=== PATIENT | female | born 1955 | race Caucasian/White ===

== ENCOUNTER 2024-11-25 19:34 | Inpatient (IN) ==
[2024-11-25 20:20] LABS: Hematocrit (blood only) 40.7 % (37.0-47.0); Hemoglobin 13.2 g/dl (12.0-16.0); Mean Corpuscular Hemoglobin 31.4 pg (25.0-34.0); Mean Corpuscular Hgb Conc 32.4 g/dL (32.0-36.0); Mean Corpuscular Volume 96.9 fL (80.0-100.0); Mean Platelet Volume 9.1 fL (9.4-12.4); Platelet Count 164 K/uL (130-400); RDW Coefficient of Variation 12.4 % (11.5-14.5); RDW Standard Deviation 44.8 fL (36.4-46.3); White Blood Count 2.55 K/ul (4.8-10.8)
[2024-11-25] MEDS: ALBUT/IPRATROP 3MG/0.5MG NEB 3 ML VIAL INH STA (20:22)
[2024-11-25 20:36] LABS: Albumin Globulin Ratio 1.1 (0.9-2); Albumin Level 3.8 gm/dl (3.4-5.0); BUN Creatinine Ratio 14.1 (10-20); Bilirubin,Total 0.2 mg/dl (0.2-1.0); Calcium 8.7 mg/dl (8.6-10.3); Creatinine Clr Calc Pharmacy 63.3 ml/min; Globulin 3.4 gm/dl (2.5-4.0); Magnesium 1.8 mg/dl (1.7-2.4); Total Protein 7.2 gm/dl (6.0-8.3)
[2024-11-25 20:42] LABS: Troponin I High Sensitivity 7.2 pg/ml (0-14)
[2024-11-25 21:07] LABS: Immature Granulocytes # (auto) 0.01 K/uL (0.01-0.20); Immature Granulocytes % (auto) 0.4 %; Lymphocytes # (auto) 1.57 K/uL (1.20-3.40); Lymphocytes % (auto) 61.6 %; Monocytes # (auto) 0.38 K/uL (0.11-0.59); Monocytes % (auto) 14.9 %; Neutrophils # (auto) 0.59 K/uL (1.40-6.50); Neutrophils % (auto) 23.1 %
[2024-11-25 21:11] LABS: Adenovirus PCR Not Detected (NotDetected); Bordetella parapertussis PCR Not Detected (NotDetected); Bordetella pertussis PCR Not Detected (NotDetected); Chlamydia pneumoniae PCR Not Detected (NotDetected); Coronavirus 229E PCR Not Detected (NotDetected); Coronavirus CoV-2 (COVID19)PCR Not Detected (NotDetected); Coronavirus HKU1 PCR Not Detected (NotDetected); Coronavirus NL63 PCR Not Detected (NotDetected); Coronavirus OC43PCR Not Detected (NotDetected); Human Metapneumovirus PCR Not Detected (NotDetected); Influenza A (H3) PCR DETECTED (NotDetected); Influenza B PCR Not Detected (NotDetected); Mycoplasma pneumoniae PCR Not Detected (NotDetected); Parainfluenza Virus 1 PCR Not Detected (NotDetected); Parainfluenza Virus 2 PCR Not Detected (NotDetected); Parainfluenza Virus 3 PCR Not Detected (NotDetected); Parainfluenza Virus 4 PCR Not Detected (NotDetected); Respiratory Syncytial VirusPCR Not Detected (NotDetected); Rhinovirus/Enterovirus PCR Not Detected (NotDetected)
--- NOTE | 2024-11-25 21:35 | XRay Report ---
Exam(s): XR CXR 1 VIEW EXAM: XR Chest, 1 View CLINICAL HISTORY: Reason for exam: Dyspnea. TECHNIQUE: Frontal view of the chest. COMPARISON: 11/09/[address] and 01/26/24 chest x-ray FINDINGS: Lungs: COPD changes seen in the lungs. Nodular densities are seen in the right upper lobe, similar to prior CT from 11/09/24. No consolidation. Pleural space: There is no pneumothorax. Heart: Unremarkable. No cardiomegaly. Mediastinum: Unremarkable. Normal mediastinal contour. Bones/joints: Unremarkable. No acute fracture. IMPRESSION: 1. COPD changes in the lungs 2. Right upper lobe nodules, also described on the patient's prior chest CT Electronically signed by: Stoney Rollins MD 11/25/24 21:34 PM
--- NOTE | 2024-11-25 22:28 | Emergency Department Note ---
Impression & Plan Influenza, Dyspnea, Acute exacerbation of chronic obstructive pulmonary disease (COPD) ED Provider Note ED Provider Note NAME: MIKE DIXON AGE:69 SEX: Female : 1955 ARRIVES VIA: Private vehicle INFORMANT: Patient ED PROVIDER(s): Kathie Dawkins DO CHIEF COMPLAINT: Shortness of breath HPI: This is a 69-year-old female brought in by family due to concern for increased shortness of breath. Patient does wear oxygen at home, 2 to 3 L/min chronically due to underlying COPD/emphysema. Patient states she is been sick with the flu since Saturday with a worsening nonproductive cough. Unknown sick contacts. She has had subjective fevers and chills. She states she has had chest tightness and pain additionally. She has noted decreased appetite and nausea, no overt vomiting. She does admit to mild diarrhea today. She states with her rhinorrhea and congestion she began having worsening cough which led to increased difficulty breathing. On arrival here on her usual oxygen she was noted to be 84%. This was titrated up to improve her oxygenation. Patient states she did present to [facility] earlier today due to her symptoms. She states she was given IV antibiotics and underwent labs and chest x-ray. She states she was told she had pneumonia. She states she was not given Tamiflu as she has been ill for too many days. She states she did not want to be admitted there because her water treatment operator, Dr. Means, is up here at [facility]. Patient states she has been using her MDI/nebs at home. PAST MEDICAL HISTORY:See Below PAST SURGICAL HISTORY:See Below FAMILY HISTORY:See Below SOCIAL HISTORY:See Below HOME MEDICATIONS:See Below ALLERGIES:See Below VITALS:See Below PHYSICAL EXAMINATION: GENERAL: alert, unwell appearing, well nourished, moderate distress, non-toxic EYE EXAM: normal conjunctiva, PERRL and EOM's grossly intact OROPHARYNX: no exudate, no erythema, lips, buccal mucosa, and tongue normal and mucous membranes are moist NECK: supple, no nuchal rigidity, no adenopathy, non-tender LUNGS: Decreased bilaterally to auscultation. Normal chest wall mechanics, scattered expiratory wheeze bilaterally, no rhonchi or rails, tachypnea and increased work of breathing noted HEART: no murmurs, S1 normal and S2 normal ABDOMEN: abdomen soft, non-tender, normo-active bowel sounds, no masses, no rebound or guarding. BACK: Back is symmetrical on inspection and there is no deformity, no midline tenderness, no CVA tenderness. SKIN: no rashes, petechiae, orbruising UPPER EXTREMITIES: upper extremities are grossly normal. FROM, nml pulses b/l. Mild clubbing and yellowish discoloration consistent with smoking history LOWER EXTREMITIES: No pitting edema. FROM, nml pulses b/l. NEURO EXAM: Normal sensorium, cranial nerves II-XII grossly intact, normal speech, no facial droop,nogross weakness of arms, no gross weakness of legs. Gross sensation intact. No ataxia. Vital Signs: reviewed and remarkable Differential Diagnosis: pneumonia, bronchitis, COPD/Asthma exacerbation, pneumothorax, pulmonary embolism, congestive heart failure, acute coronary syndrome, as well as others were considered MEDICAL DECISION MAKING: This is a 69-year-old female who presents emergency department due to concern for increased work of breathing. Patient noted to be hypoxic despite use of her home oxygen when she presented to triage and was immediately brought back to room 81. Patient able to speak and provide history although was tachypneic and had worsening conversational dyspnea. Patient given a DuoNeb here. Labs drawn and sent, IV established, EKG and chest x-ray performed at bedside interpreted me and patient monitored on telemetry. Nasal swab obtained and sent for viral illness. Patient did have some improvement following nebulizer, and was maintaining her oxygenation on 3 to 4 L via nasal cannula. Patient swab positive for influenza which I suspect is likely exacerbating her underlying COPD/emphysema. Patient given the second neb additionally. We discussed addition of steroids as a precaution due to her COPD and she was in agreement. Patient was noted to be neutropenic, although did not have any fevers. Given patient had been ill for several days already, Tamiflu not started. I do not suspect occult cardiac etiology of her symptoms. She remained hemodynamically stable throughout and did report feeling improved. Case discussed with the hospitalist team for additional evaluation and management. Consultation(s): 3941: Discussed with Dr. Saucedo, [facility] hospitalist team, for additional evaluation and management. ER Treatment Provided: See below Diagnostics Interpreted By Me: -ECG: Normal sinus at 97, normal axis, normal intervals, no acute ST/T wave changes -Cardiac Monitoring: An order was placed for continuous cardiac monitoring. The monitor shows a rate of 96 with normal sinus rhythm. -Laboratory studies: As stated above and show below. -Imaging studies: X-ray Chest: A single view study of the chest was reviewed and was negative for cardiomegaly, focal infiltrate, effusion, pulmonary edema, or wide mediastinum. Triage Nursing Note Reviewed Prior/Outside Records Reviewed -prior pulmonology office visit reviewed Past Med/Surg History Problem List (Updated 11/26/24 @ 02:39 by Background Daemon) Acute and chronic respiratory failure with hypoxia Acute exacerbation of chronic obstructive pulmonary disease (COPD) (Acute) Dyspnea (Acute) Influenza (Acute) Hypercapnic respiratory failure Pulmonary nodules/lesions, multiple Mycobacterium avium complex Bronch 10/18/2022. [facility] ID following and treating Chronic obstructive pulmonary disease Tobacco use Abnormal CT scan, chest Anxiety Current tobacco use Chronic obstructive pulmonary disease Cavitary lesion of lung Quant Gold negative 09/28/2022. Bronch 10/18/2022 with MAC and positive AFB Cx. [facility] ID following Chronic respiratory failure with hypoxia Abnormal laboratory test THADDEUS 1: 320 Rheumatoid factor: 506 Medical History (Updated 11/26/24 @ 02:39 by Background Daemon) Stomach upset Shortness of breath Radiculopathy Chest pain Chest discomfort Social History (Updated 04/28/24 @ 13:42 by Edwina Reyes LPN) Smoking Status: Current some day smoker Tobacco Type: Cigarettes Age Started Using Tobacco: 34; packs per day: 2; Cigarettes Per Day: [id number] smoking history. Currently 1 pack/day; Second Hand Exposure: Yes; Do You Dip or Chew Tobacco: No; Hx Alcohol Use: No Hx Substance Use: No Preferred Language: Malawian Communication Ability: Effective Solidworks Designer Required: No Beliefs That Will Affect Care: None marital status: / Current Living Situation: Alone Current Living Situation Comment: Son comes in and checks on patient Other Information That Helps Us Care for You: No Feels Safe at Home: Yes Safety Concerns: Feels Safe At This Time Assistive Devices: Oxygen - Continuous and Walker Allergies Allergies Allergy/AdvReac Type Severity Reaction Status Date / Time No Known Allergies Allergy Unverified 11/25/24 22:51 Home Meds Home Medications Medication Instructions Recorded Confirmed citalopram 40 mg tablet 40 mg PO QAM 10/30/19 11/25/24 rifampin 300 mg capsule 600 mg PO QPM 12/18/22 11/25/24 buspirone 10 mg tablet 10 mg PO TID PRN Anxiety 08/05/24 11/25/24 ethambutol 400 mg tablet 800 mg PO QAM 08/05/24 11/25/24 omeprazole 20 mg capsule,delayed 20 mg PO QDL 08/05/24 11/25/24 release trazodone 100 mg tablet 100 mg PO HS 08/05/24 11/25/24 acetaminophen 500 mg tablet 1,000 mg PO BID 11/25/24 11/25/24 albuterol sulfate 90 mcg/actuation 2 inh inhalation QID PRN shortness 11/25/24 11/25/24 aerosol inhaler of breath or wheezing azithromycin 250 mg tablet 250 mg PO QAM 11/25/24 11/25/24 fluticasone fur. 200 mcg-umeclid 1 inh inhalation QAM 11/25/24 11/25/24 62.5 mcg-vilant 25 mcg inhalat.powder (Trelegy Ellipta) ipratropium 0.5 mg-albuterol 3 mg 3 ml inhalation Q4 PRN Shortness 11/25/24 11/25/24 (2.5 mg base)/3 mL nebulization Of Breath soln Previous Rx's Medication Instructions Recorded Flutter Valve #1 ea 09/26/22 Oxygen Home #1 ea 11/15/22 Spacer for Inhaler #1 ea 09/25/23 ensifentrine 3 mg/2.5 mL 3 mg (2.5 mL) inhalation BID #150 08/12/24 suspension for nebulization mL (Ohtuvayre) nebulizers #1 ea 08/18/24 Results & Data (ED) Vital Signs Vital Signs - 24 hr 11/26/24 00:03 11/26/24 00:30 Pulse Rate 86 88 Pulse Rate from SpO2 Sensor 86 90 Respiratory Rate 17 14 Blood Pressure 152/84 H Blood Pressure Mean 106 Pulse Oximetry 96 98 Oxygen Delivery Method Nasal Cannula Nasal Cannula Oxygen Flow Rate 3 3 Laboratory Data 11/26/24 06:27 11/26/24 06:27 Lab Results 11/25/24 Range/Units 20:01 WBC 2.55 L (4.8-10.8) K/ul RBC 4.20 (4.20-5.40) M/uL Hgb 13.2 (12.0-16.0) g/dl Hct 40.7 (37.0-47.0) % MCV 96.9 (80.0-100.0) fL MCH 31.4 (25.0-34.0) pg MCHC 32.4 (32.0-36.0) g/dL RDW Std Deviation 44.8 (36.4-46.3) fL RDW Coeff of Betty 12.4 (11.5-14.5) % Plt Count 164 (130-400) K/uL MPV 9.1 L (9.4-12.4) fL Immature Gran % (Auto) 0.4 % Neut % (Auto) 23.1 % Lymph % (Auto) 61.6 % [place] % (Auto) 14.9 % Eos % (Auto) 0.0 % Baso % (Auto) 0.0 % Neut # (Auto) 0.59 L* (1.40-6.50) K/uL Lymph # (Auto) 1.57 (1.20-3.40) K/uL [place] # (Auto) 0.38 (0.11-0.59) K/uL Eos # (Auto) 0.00 (0.00-0.50) K/uL Baso # (Auto) 0.00 (0.00-0.20) K/uL Immature Gran # (Auto) 0.01 (0.01-0.20) K/uL Sodium 141 (136-145) mmol/L Potassium 4.0 (3.5-5.1) mmol/L Chloride 103 (98-107) mmol/L Carbon Dioxide 32 (21-32) mmol/L Anion Gap 6 (3-11) BUN 9 (6-23) mg/dl Creatinine 0.64 (0.6-1.2) mg/dl Est Cr Clr Drug Dosing 63.3 ml/min eGFR 94.42 BUN/Creatinine Ratio 14.1 (10-20) Glucose 121 H (70-99(Fasting)) mg/dl Calcium 8.7 (8.6-10.3) mg/dl Magnesium 1.8 (1.7-2.4) mg/dl Total Bilirubin 0.2 (0.2-1.0) mg/dl AST 25 (13-39) U/L ALT 14 (7-52) U/L Alkaline Phosphatase 73 (34-104) U/L Troponin I High Sens 7.2 (0-14) pg/ml Total Protein 7.2 (6.0-8.3) gm/dl Albumin 3.8 (3.4-5.0) gm/dl Globulin 3.4 (2.5-4.0) gm/dl Albumin/Globulin Ratio 1.1 (0.9-2) Adenovirus (PCR) Not Detected (NotDetected) B. pertussis DNA (PCR) Not Detected (NotDetected) B.parapertussis DNA PCR Not Detected (NotDetected) C. pneumoniae DNA (PCR) Not Detected (NotDetected) Coronavirus OC43 (PCR) Not Detected (NotDetected) Coronavirus HKU1 (PCR) Not Detected (NotDetected) Coronavirus 229E (PCR) Not Detected (NotDetected) SARS-CoV-2 (PCR) Not Detected (NotDetected) Coronavirus NL63 (PCR) Not Detected (NotDetected) Human Metapneumovir PCR Not Detected (NotDetected) Influenza A (H3) PCR DETECTED A (NotDetected) Influenza Type B (PCR) Not Detected (NotDetected) M. pneumoniae (PCR) Not Detected (NotDetected) Parainfluenza 1 (PCR) Not Detected (NotDetected) Parainfluenza 2 (PCR) Not Detected (NotDetected) Parainfluenza 3 (PCR) Not Detected (NotDetected) Parainfluenza 4 (PCR) Not Detected (NotDetected) RSV (PCR) Not Detected (NotDetected) Entero/Rhino (PCR) Not Detected (NotDetected) Administered Medications Al Hydrox/Mg Hydrox/Simethicone (Aluminum/Magnesium Susp 30 Ml Udc) 30 ml PO Q6H PRN PRN Reason: Dyspepsia Stop: 12/26/24 02:53 Last Admin: 11/26/24 11:06 Dose: 30 ml Documented By: CMV Azithromycin (Azithromycin 250 Mg Tab) 250 mg PO QAM CADEN Stop: 12/26/24 08:59 Last Admin: 11/26/24 08:45 Dose: 250 mg Documented By: CMV Buspirone HCl (Buspirone 5 Mg Tab) 10 mg PO TID PRN PRN Reason: Anxiety Stop: 12/26/24 02:53 Last Admin: 11/26/24 08:45 Dose: 10 mg Documented By: CMV Citalopram Hydrobromide (Citalopram 40 Mg Tab) [facility] [place] Stop: 12/26/24 08:59 Last Admin: 11/26/24 08:45 Dose: 40 mg Documented By: CMV Enoxaparin Sodium (Enoxaparin Inj 40 Mg/0.4 Ml Syr) 40 [facility] [place] Stop: 12/26/24 08:59 Last Admin: 11/26/24 08:44 Dose: 40 mg Documented By: CMV Ethambutol HCl (Ethambutol Hcl 400 Mg Tab) 800 [facility] [place] Stop: 12/26/24 08:59 Last Admin: 11/26/24 08:44 Dose: 800 mg Documented By: CMV Fluticasone Furoate (Fluticasone Furoate 200mcg 14 Puffs/Inhaler) 1 puffs INH DAILY [facility] Stop: 12/26/24 08:59 Last Admin: 11/26/24 08:46 Dose: 1 puffs Documented By: CMV Guaifenesin (Guaifenesin 600 Mg Tabcr) 1,200 mg PO Q12 [facility] Stop: 12/26/24 08:59 Last Admin: 11/26/24 20:40 Dose: 1,200 mg Documented By: Admin: 11/26/24 08:44 Dose: 1,200 mg Documented By: CMV Methylprednisolone 40 mg/ (Syringe) 0.64 mls @ 1.5 mls/min IV BID [facility] Stop: 12/26/24 08:59 Last Admin: 11/26/24 20:39 Dose: 1.5 mls/min Documented By: Admin: 11/26/24 08:50 Dose: 1.5 mls/min Documented By: CMV Oseltamivir Phosphate (Oseltamivir Phosphate 75 Mg Cap) 75 mg PO BID [facility]; Protocol Stop: 12/01/24 08:59 Last Admin: 11/26/24 20:40 Dose: 75 mg Documented By: Admin: 11/26/24 08:44 Dose: 75 mg Documented By: CMV Rifampin (Rifampin 300 Mg Capsule) 600 mg PO QPM CADEN Stop: 12/26/24 02:53 Last Admin: 11/26/24 20:40 Dose: 600 mg Documented By: Admin: 11/26/24 04:03 Dose: Not Given Documented By: MARCUS Sodium Chloride (Sodium Chloride 0.65% Na Soln 45 Ml ([place])) 1 sprays NA PRN PRN PRN Reason: Dryness Stop: 12/26/24 07:49 Last Admin: 11/26/24 11:06 Dose: 1 sprays Documented By: CMV Trazodone HCl (Trazodone Hcl 100 Mg Tab) 100 mg PO HS CADEN Stop: 12/26/24 00:54 Last Admin: 11/26/24 20:40 Dose: 100 mg Documented By: Admin: 11/26/24 01:36 Dose: 100 mg Documented By: DEVIN Umeclidinium/Vilanterol (Umeclidinium/Vilanterol 62.5/25mcg 7 Puffs/Inhaler) 1 puffs INH DAILY CADEN Stop: 12/26/24 08:59 Last Admin: 11/26/24 08:46 Dose: 1 puffs Documented By: CMV Discontinued Medications Albuterol (Albut/Ipratrop 3mg/0.5mg Neb 3 Ml Vial) 3 ml INH NOW STA Stop: 11/25/24 20:06 Last Admin: 11/25/24 20:22 Dose: 3 ml Documented By: Albuterol (Albut/Ipratrop 3mg/0.5mg Neb 3 Ml Vial) 3 ml NEB NOW STA; Protocol Stop: 11/25/24 22:29 Last Admin: 11/26/24 00:27 Dose: 3 ml Documented By: DEVIN Albuterol (Albuterol Hfa 8 Gm Inhaler) 1 puffs INH QIDR CADEN Stop: 12/26/24 06:59 Last Admin: 11/26/24 19:43 Dose: 1 puffs Documented By: Admin: 11/26/24 14:31 Dose: 1 puffs Documented By: Admin: 11/26/24 10:46 Dose: 1 puffs Documented By: Admin: 11/26/24 07:34 Dose: 1 puffs Documented By: DANIELE Sodium Chloride (Nss) 1,000 mls @ 125 mls/hr IV .Q8H CADEN Stop: 11/26/24 14:29 Last Infusion: 11/26/24 14:37 Dose: Infused Documented By: Admin: 11/26/24 10:32 Dose: 125 mls/hr Documented By: Infusion: 11/26/24 08:25 Dose: Infused Documented By: Admin: 11/26/24 00:25 Dose: 125 mls/hr Documented By: DEVIN Ipratropium [place] (Ipratropium [place] Hfa Inhaler) 1 puffs INH QIDR CADEN Stop: 12/26/24 06:59 Last Admin: 11/26/24 19:42 Dose: 1 puffs Documented By: Admin: 11/26/24 14:31 Dose: 1 puffs Documented By: Admin: 11/26/24 10:46 Dose: 1 puffs Documented By: Admin: 11/26/24 07:34 Dose: 1 puffs Documented By: DANIELE Methylprednisolone (Methylprednisolone 125 Mg/2 Ml Vial) 60 mg IV NOW STA Stop: 11/25/24 22:29 Last Admin: 11/26/24 00:26 Dose: 60 mg Documented By: DEVIN Imaging Data Radiologist's Impression: Chest X-Ray 11/25/24 20:05 Exam(s): XR CXR 1 VIEW EXAM: XR Chest, 1 View CLINICAL HISTORY: Reason for exam: Dyspnea. TECHNIQUE: Frontal view of the chest. COMPARISON: 11/09/[address] and 01/26/24 chest x-ray FINDINGS: Lungs: COPD changes seen in the lungs. Nodular densities are seen in the right upper lobe, similar to prior CT from 11/09/24. No consolidation. Pleural space: There is no pneumothorax. Heart: Unremarkable. No cardiomegaly. Mediastinum: Unremarkable. Normal mediastinal contour. Bones/joints: Unremarkable. No acute fracture. IMPRESSION: 1. COPD changes in the lungs 2. Right upper lobe nodules, also described on the patient's prior chest CT Electronically signed by: Stoney Rollins MD 11/25/24 21:34 PM Discharge Plan Visit Data Chief Complaint: Shortness of Breath/Dyspnea Stated Complaint: SOB ED Provider: Kathie Dawkins Discharge Problem: Influenza, Dyspnea, Acute exacerbation of chronic obstructive pulmonary disease (COPD) Patient Disposition: Admitted As Inpatient Discharge Instructions Interventions: ED Discharge Assessment Last Done: 11/26/24 02:20
[2024-11-26] MEDS: SODIUM CHLORIDE 0.9% 1,000 ML IV SCH (00:25)
[2024-11-26] MEDS: methylPREDNISolone 125 MG/2 ML VIAL IV STA (00:26)
[2024-11-26] MEDS: ALBUT/IPRATROP 3MG/0.5MG NEB 3 ML VIAL NEB STA (00:27)
--- NOTE | 2024-11-26 00:42 | History & Physical Report ---
Date of Service November 26, 2024 Assessment & Plan (1) Acute exacerbation of chronic obstructive pulmonary disease (COPD): (2) Dyspnea: (3) Influenza: (4) Mycobacterium avium complex: (5) Pulmonary nodules/lesions, multiple: (6) Current tobacco use: (7) Anxiety: (8) Acute and chronic respiratory failure with hypoxia: Plan 69 year old female with PMHx of COPD, tobacco use, MAC infection, anxiety, insomnia presenting with worsening shortness of breath: #Acute on chronic respiratory failure with hypoxia: #Influenza A: # COPD Exacerbation: SpO2 83% on home O2 at time of arrival - titrate oxygen to target SpO2>90% Respiratory Biofire +Influenza A - start Oseltamivir 75mg PO BID CXR with emphysematous changes but without consolidation, low suspicion for bacterial pneumonia at this time Continue formulary equivalent of home inhaler regimen Albuterol-Ipratropium 1 puff Q4H PRN - nebs deferred to reduce aerosolization of potentially infectious material - assess patient response, could switch to nebs if needed Mucinex, incentive spirometry, flutter valve Continue home Azithromycin for pulmonary anti-inflammatory effect IV Solumedrol 40mg BID Encourage smoking cessation Droplet precautions, neutropenic precautions AM labs: CBC, BMP #MAC Infection: - [facility] ID records reviewed - Initial sputum culture positive September 2022 - Treatment started Nov 2022, patient has since continued on 3 drug regimen of Azithromycin, Ethambutol, and Rifampin, previously completed Amikaycin course. - Negative sputum cx Jul 2023 - no additional sputum samples obtained due to patient difficulty producing sample - per ID note, recommended pulm follow up for consideration of bronch + BAL. - Patient follows with [facility] pulmonology - consider pulm consult, though this can likely be addressed in the outpatient setting - Continue Azithromycin, Ethambutol QAM + Rifampin QHS Chronic Conditions: Anxiety: Continue Celexa Insomnia: Continue Trazodone Dispo: Admit to med-tele Diet: Regular VTE ppx: Lovenox Full Code History of Present Illness Primary Care Provider: Chris River Capp, DO 69 year old female with PMHx of COPD, tobacco use, MAC infection, anxiety, i nsomnia presenting with worsening shortness of breath. Sx started Saturday with rhinorrhea, fatigue, myalgias - later developed subjective fevers/chills, shortness of breath. On 2-3L O2 at baseline, was requiring 5-6L over past couple day. Patient seen earlier today at an outside facility, tested positive for influenza - recommended for admission but patient wanted to be treated at [facility] as her pulmonology team is here. Patient follows with [place] pulmonology and [facility] ID for management of MAC infection, diagnosed September 2022. At present, patient notes partial improvement in SOB with neb tx. Denies current fever/chills. ED Course: S/P IV Solumedrol 60mg S/P Duonebs x2 Allergies Allergy/AdvReac Type Severity Reaction Status Date / Time No Known Allergies Allergy Unverified 11/25/24 22:51 Home Medications Medication Instructions Recorded Confirmed Type citalopram 40 mg tablet 40 mg PO QAM 10/30/19 11/25/24 History Flutter Valve #1 ea 09/26/22 11/25/24 Rx Oxygen Home #1 ea 11/15/22 11/25/24 Rx rifampin 300 mg capsule 600 mg PO QPM 12/18/22 11/25/24 History Spacer for Inhaler #1 ea 09/25/23 11/25/24 Rx buspirone 10 mg tablet 10 mg PO TID PRN Anxiety 08/05/24 11/25/24 History ethambutol 400 mg tablet 800 mg PO QAM 08/05/24 11/25/24 History omeprazole 20 mg capsule,delayed 20 mg PO QDL 08/05/24 11/25/24 History release trazodone 100 mg tablet 100 mg PO HS 08/05/24 11/25/24 History ensifentrine 3 mg/2.5 mL 3 mg (2.5 mL) inhalation BID #150 08/12/24 11/25/24 Rx suspension for nebulization mL (Ohtuvayre) nebulizers #1 ea 08/18/24 11/25/24 Rx acetaminophen 500 mg tablet 1,000 mg PO BID 11/25/24 11/25/24 History albuterol sulfate 90 mcg/actuation 2 inh inhalation QID PRN shortness 11/25/24 11/25/24 History aerosol inhaler of breath or wheezing azithromycin 250 mg tablet 250 mg PO QAM 11/25/24 11/25/24 History fluticasone fur. 200 mcg-umeclid 1 inh inhalation QAM 11/25/24 11/25/24 History 62.5 mcg-vilant 25 mcg inhalat.powder (Trelegy Ellipta) ipratropium 0.5 mg-albuterol 3 mg 3 ml inhalation Q4 PRN Shortness 11/25/24 11/25/24 History (2.5 mg base)/3 mL nebulization Of Breath soln Past Med/Surg History Problem List (Updated 11/26/24 @ 02:39 by Background Daemon) Acute and chronic respiratory failure with hypoxia Acute exacerbation of chronic obstructive pulmonary disease (COPD) (Acute) Dyspnea (Acute) Influenza (Acute) Hypercapnic respiratory failure Pulmonary nodules/lesions, multiple Mycobacterium avium complex Bronch 10/18/2022. [facility] following and treating Chronic obstructive pulmonary disease Tobacco use Abnormal CT scan, chest Anxiety Current tobacco use Chronic obstructive pulmonary disease Cavitary lesion of lung Quant Gold negative 09/28/2022. Bronch 10/18/2022 with MAC and positive AFB Cx. [facility] ID following Chronic respiratory failure with hypoxia Abnormal laboratory test THADDEUS 1: 320 Rheumatoid factor: 506 Medical History (Updated 11/26/24 @ 02:39 by Background Daemon) Stomach upset Shortness of breath Radiculopathy Chest pain Chest discomfort Social History (Updated 04/28/24 @ 13:42 by Edwina Reyes LPN) Smoking Status: Current some day smoker Tobacco Type: Cigarettes Age Started Using Tobacco: 34; packs per day: 2; Cigarettes Per Day: [id number] smoking history. Currently 1 pack/day; Second Hand Exposure: Yes; Do You Dip or Chew Tobacco: No; Hx Alcohol Use: No Hx Substance Use: No Preferred Language: Rwandan Communication Ability: Effective [employer] Required: No Beliefs That Will Affect Care: None marital status: / Current Living Situation: Alone Current Living Situation Comment: Son comes in and checks on patient Other Information That Helps Us Care for You: No Feels Safe at Home: Yes Safety Concerns: Feels Safe At This Time Assistive Devices: Oxygen - Continuous and Walker Review of Systems Review of Systems: as per HPI Physical Exam Physical Exam: General: Alert and oriented. No acute distress Cardiac: Regular rate and rhythm, no murmurs appreciated Respiratory: Lungs clear to auscultation bilaterally, No increased work of breathing Abdominal: Soft, non-tender, non-distended. Bowel sounds present. Gravid uterus. Extremities: No lower extremity edema, calves non-tender bilaterally Results & Data Results & Data Vital Signs (Past 12 Hours) Vital Signs Temp Pulse Pulse Resp BP BP Pulse Ox 11/26/24 00:03 86 17 152/84 H 96 11/25/24 22:33 100 H 23 95 11/25/24 21:30 100 H 20 93 11/25/24 21:00 98 H 18 129/75 96 11/25/24 21:00 101 H 20 129/75 96 11/25/24 20:12 94 H 11/25/24 20:11 133/81 11/25/24 20:07 94 H 20 98 11/25/24 20:01 99 11/25/24 20:01 11/25/24 19:43 36.7 C 110 H 19 142/76 H 83 L O2 Del Method O2 Flow Rate 11/26/24 00:03 Nasal Cannula 3 11/25/24 22:33 Nasal Cannula 3 11/25/24 21:30 Room Air 11/25/24 21:00 Room Air 11/25/24 21:00 Nasal Cannula 3 11/25/24 20:12 11/25/24 20:11 11/25/24 20:07 Nasal Cannula 3 11/25/24 20:01 Nasal Cannula 4 11/25/24 20:01 Nasal Cannula 4 11/25/24 19:43 Nasal Cannula 3 Supervising Physician Co-Signing Physician Notes Attending addendum: I have physically seen this patient, have supervised the medical residents activities, and agree with the H&P unless as otherwise noted. Assessment and Plan: The patient is a 69-year-old female with past medical history including COPD, tobacco use disorder, chronic MAC infection, anxiety, insomnia who presents with worsening shortness of breath over the past several days. Acute on chronic respiratory failure with hypoxia/influenza A/COPD exacerbation/MAC infection Pulse ox 83% at home Respiratory BioFire test positive for influenza A, will start Tamiflu 75 mg p.o. twice daily Chest x-ray shows COPD/emphysematous changes without consolidation Duonebs every 4 hours while awake and every 2 hours when necessary. Every 4 hours as needed Mucinex 60 mg p.o. every 12 hours Incentive spirometry and flutter valve From the ED patient received methylprednisolone 60 mg IV, DuoNebs x 2, and normal saline 125 mL/h Continue methylprednisolone 40 mg IV every 12 hours Droplet precautions Neutropenic precautions Tobacco cessation counseling Chronic MAC infection- Review from [facility] infectious disease, with initial sputum positive on September 2022 Treatment began in November 2022, with 3 drug regimen of azithromycin, ethambutol and rifampin, having previously completed an amikacin course Continue treatment as above Patient does follow with [facility] pulmonology Continue current regimen, and consult pulmonology/infectious disease as needed Remaining orders and notations as noted Resident Activity Tracking Resident Involvement: Resident Care Provided Care Provided: Adult Hospital Medicine
[2024-11-26] MEDS: traZODone HCL 100 MG TAB PO SCH (01:36)
[2024-11-26] MEDS ORDERED: MELATONIN 3 MG TAB PO PRN (02:54)
[2024-11-26] MEDS ORDERED: IPRATROPIUM BROMIDE/ALBUTEROL respimat INH INH PRN (02:54)
[2024-11-26] MEDS ORDERED: POLYETHYLENE (MIRALAX) 17 GM PACK PO PRN (02:54)
[2024-11-26] MEDS: rifAMPin 300 MG CAPSULE PO SCH (04:03)
[2024-11-26 06:57] LABS: Hematocrit (blood only) 35.9 % (37.0-47.0); Mean Corpuscular Hemoglobin 32.4 pg (25.0-34.0); Mean Corpuscular Hgb Conc 33.4 g/dL (32.0-36.0); Mean Platelet Volume 9.1 fL (9.4-12.4); Platelet Count 138 K/uL (130-400); RDW Coefficient of Variation 12.4 % (11.5-14.5); RDW Standard Deviation 44.4 fL (36.4-46.3); White Blood Count 2.09 K/ul (4.8-10.8)
[2024-11-26 07:25] LABS: BUN Creatinine Ratio 17.3 (10-20); Creatinine Clr Calc Pharmacy 77.1 ml/min; Potassium 3.9 mmol/L (3.5-5.1)
--- NOTE | 2024-11-26 07:27 | Hospitalist Progress Note ---
Date of Service November 26, 2024 Assessment & Plan (1) Acute exacerbation of chronic obstructive pulmonary disease (COPD): (2) Influenza: (3) Acute and chronic respiratory failure with hypoxia: (4) Mycobacterium avium complex: (5) Pulmonary nodules/lesions, multiple: (6) Anxiety: Plan 69 year old female with PMHx of COPD with home O2 2-3L/min, 34pack-year tobacco smoking history, MAC infection, anxiety, and insomnia presenting with worsening shortness of breath and desaturations to the low 80s requiring 6L/min NC likely provoked by Flu A, SOB improving and O2 currently improved to home rate of 3L/min. # COPD Exacerbation - Acute on chronic respiratory failure with hypoxia likely provoked by Influenza A - O2 requirement improving, currently on 3L/min saturating mid-90s, uses 2- 3L/min at home Maintain O2>90% Once within a day or 2 of discharge, obtain overnight pulseox at 2L/min, can increase to 3L/min consistently <90% Obtain ABG in AM after overnight pulseox BMP AM Continue home COPD meds Albuterol-Ipratropium 1 puff Q4H PRN - can switch to nebs if needed IV Solumedrol 40mg BID Mucinex, incentive spirometry, flutter valve Emphasize continued smoking cessation Consider palliative consult if has not spoken to palliative at [facility], otherwise discuss ongoing management of symptoms and quality of life while inpatient Followup outpatient to be evaluated for AVAPS utility #Influenza A: Continue Tamiflu Continue home Azithromycin for pulmonary anti-inflammatory effect as a bonus from daily MAC regimen Continue above regimen for COPD exacerbation Droplet precautions CBC AM #MAC Infection: - [facility] [place] records reviewed - Initial sputum culture positive September 2022 - Treatment started Nov 2022, patient has since continued on 3 drug regimen of Azithromycin, Ethambutol, and Rifampin, previously completed Amikaycin course. - Negative sputum cx Jul 2023 - no additional sputum samples obtained due to patient difficulty producing sample - per ID note, recommended pulm follow up for consideration of bronch + BAL. - Patient follows with [facility] pulmonology - can likely follow up as an outpatient Continue Azithromycin qAM, Ethambutol qAM, Rifampin qHS Neutropenic precautions Chronic Conditions: Anxiety- continue Celexa Insomnia- continue Trazodone Dispo: medical Diet: Regular VTE ppx: Lovenox Full Code Admission and Anticipated Discharge Date Admission Date: November 26, 2024 Supervising Physician Co-Signing Physician Notes I personally examined the patient and verified all martin points of history and exam, discussed case, and agree with decision making with Dr Everett Feeling better at rest still significantly short of breath with exertion. Vitals noted, in general she is awake and alert pleasant no distress. HEENT normocephalic atraumatic mucous membranes moist. Breathing unlabored no accessory muscle use good effort. Skin without rashes pallor or icterus. Thin appearing. Flu, COPD exacerbation, acute on chronic respiratory failure with hypoxia all superimposed on MAC as well as baseline COPDcontinue steroids, continue supportive care. Showing slow improvement. Anticipate overnight pulse ox and a.m. blood gas once she is within 24-48 hours of dischargewe discussed it seems highly unlikely that she will be leaving in the next 24therefore holding off for now. Underweight with BMI of 17.5likely relates to the severity of her chronic lung disease. DVT proph - lovenox Subjective Milagro was seen and evaluated at bedside this AM, appearing in mild distress, NC set to 3L/min in place. Confirms history of COPD, 34pack-year smoking history not currently smoking, MAC since 2022, stable pulmonary nodules being followed, anxiety. Denies any history of positive HIV screen, denies any known reason for immunocompromise, but follows with Dr. Martinez with infectious disease in [place]. States she tested positive for Flu A on Saturday11/22/24 but had symptoms of SOB and nonproductive cough since maybe last 11/19/24. Also notes decrease in appetite, and endorses she at baseline doesn't have a big appetite. This morning she feels better than she did last night, able to breathe without issue on 3L/min when lying in bed. She notes, however, that she would still have much shortness of breath and fatigue if she got up to walk to the bathroom, so she is currently with leonardo and on bedpan. Amenable to PT/OT to regain strength, but feels she will need at least a few days here before she can go home. Review of Systems Review of Systems: denies fever, body aches, chills, sweats, hemoptysis, nausea/vomiting. Physical Exam Physical Exam: General: A&Ox3, appearing frail and in mild distress, nontoxic in appearance CV: RRR, +s1/s2, no m/r/g Respiratory: decreased air movement b/l, soft R lower lung wheeze, otherwise clear to auscultation b/l, no retractions seen GI/Abdominal: +BS, abdomen soft, non-tender, non-distended MSK: 4/5 strength in all extremities Neuro: no facial droop, speech intact, no sensory deficits Extremities: No lower extremity edema, calves non-tender b/l, wiggles fingers and toes on command Skin: warm, dry, intact Results & Data Results & Data Vital Signs (Past 12 Hours) Vital Signs Temp Pulse Pulse Pulse Resp BP BP 11/26/24 07:21 36.6 C 86 16 130/74 11/26/24 02:58 11/26/24 02:54 36.6 C 105 H 20 149/80 H 11/26/24 02:00 90 21 11/26/24 00:30 88 14 11/26/24 00:03 86 17 152/84 H 11/25/24 22:33 100 H 23 11/25/24 21:30 100 H 20 11/25/24 21:00 98 H 18 129/75 11/25/24 21:00 101 H 20 129/75 11/25/24 20:12 94 H 11/25/24 20:11 133/81 11/25/24 20:07 94 H 20 11/25/24 20:01 11/25/24 20:01 11/25/24 19:43 36.7 C 110 H 19 142/76 H Pulse Ox O2 Del Method O2 Flow Rate 11/26/24 07:21 97 Nasal Cannula 2.0 11/26/24 02:58 Nasal Cannula 3 11/26/24 02:54 92 Nasal Cannula 2 11/26/24 02:00 96 Nasal Cannula 3 11/26/24 00:30 98 Nasal Cannula 3 11/26/24 00:03 96 Nasal Cannula 3 11/25/24 22:33 95 Nasal Cannula 3 11/25/24 21:30 93 Room Air 11/25/24 21:00 96 Room Air 11/25/24 21:00 96 Nasal Cannula 3 11/25/24 20:12 11/25/24 20:11 11/25/24 20:07 98 Nasal Cannula 3 11/25/24 20:01 99 Nasal Cannula 4 11/25/24 20:01 Nasal Cannula 4 11/25/24 19:43 83 L Nasal Cannula 3 Resident Activity Tracking Resident Involvement: Resident Care Provided Care Provided: Adult Hospital Medicine
[2024-11-26] MEDS: ALBUTEROL HFA 8 GM INHALER INH SCH (07:34)
[2024-11-26] MEDS: IPRATROPIUM BROMIDE HFA INHALER INH SCH (07:34)
[2024-11-26 07:58] LABS: ALC (manual) 1.42 K/uL (1.2-3.4); ANC (manual) 0.59 K/uL (1.4-6.5); Lymphocytes # (manual) 0.98 K/uL (1.2-3.4); Lymphocytes % (manual) 47 %; Monocytes # (manual) 0.08 K/uL (0.11-0.59); Monocytes % (manual) 4 %; Neutrophils # (manual) 0.59 K/uL (1.40-6.50); Neutrophils % (manual) 28 %; Reactive Lymphocytes # (manual) 0.44 K/uL; Reactive Lymphocytes % (manual) 21 %
[2024-11-26] MEDS ORDERED: Nursing to Pharmacy Communication SCH (08:00)
[2024-11-26] MEDS: OSELTAMIVIR PHOSPHATE 75 MG CAP PO SCH (08:44)
[2024-11-26] MEDS: guaiFENesin 600 MG TABCR PO SCH (08:44)
[2024-11-26] MEDS: ETHAMBUTOL HCL 400 MG TAB PO SCH (08:44)
[2024-11-26] MEDS: ENOXAPARIN INJ 40 MG/0.4 ML SYR SQ SCH (08:44)
[2024-11-26] MEDS: busPIRone 5 MG TAB PO PRN (08:45)
[2024-11-26] MEDS: CITALOPRAM 40 MG TAB PO SCH (08:45)
[2024-11-26] MEDS: AZITHROMYCIN 250 MG TAB PO SCH (08:45)
[2024-11-26] MEDS: FLUTICASONE FUROATE 200MCG 14 PUFFS/INHALER INH SCH (08:46)
[2024-11-26] MEDS: UMECLIDINIUM/VILANTEROL 62.5/25MCG 7 PUFFS/INHALER INH SCH (08:46)
[2024-11-26] MEDS: methylPREDNISolone 40 MG in SYRINGE 0 ML IV SCH (08:50)
[2024-11-26] MEDS ORDERED: NON-FORMULARY MEDICATION (Fluticasone-Umeclidin-Vilanter [Trelegy Ellipta] 200-62.5-25 mcg INH SCH (09:00)
[2024-11-26] MEDS: ALUMINUM/MAGNESIUM SUSP 30 ML UDC PO PRN (11:06)
[2024-11-26] MEDS: SODIUM CHLORIDE 0.65% NA SOLN 45 ML (OCEAN) PRN (11:06)
--- NOTE | 2024-11-26 13:24 | Billing Data ---
Date of Service November 26, 2024 Coding Level of Care Code 87868 SUB INP/OBS CARE 3MIN
--- NOTE | 2024-11-26 15:07 | Electrocardiogram Report ---
Test Reason : Blood Pressure : */* mmHG Vent. Rate : 97 BPM Atrial Rate : 97 BPM P-R Int : 116 ms QRS Dur : 86 ms QT Int : 338 ms P-R-T Axes : 78 39 76 degrees QTcB Int : 429 ms Normal sinus rhythm Normal ECG When compared with ECG of 18-Oct-2022 07:43, No significant change was found Confirmed by Shahid Adair ([id number]) on 11/26/2024 3:07:41 PM Referred By: REFERRED SELF Confirmed By: Shahid Adair
--- NOTE | 2024-11-26 20:30 | Billing Data ---
Date of Service November 26, 2024 Coding Level of Care Code 91892 INT INP/OBS CARE
[2024-11-26] MEDS: ALBUT/IPRATROP 3MG/0.5MG NEB 3 ML VIAL NEB SCH (23:14)
[2024-11-27 06:57] LABS: Hematocrit (blood only) 37.8 % (37.0-47.0); Hemoglobin 12.1 g/dl (12.0-16.0); Mean Corpuscular Hemoglobin 30.9 pg (25.0-34.0); Mean Corpuscular Volume 96.7 fL (80.0-100.0); Mean Platelet Volume 9.3 fL (9.4-12.4); Platelet Count 148 K/uL (130-400); RDW Coefficient of Variation 12.5 % (11.5-14.5); RDW Standard Deviation 44.3 fL (36.4-46.3); Red Blood Count 3.91 M/uL (4.20-5.40)
[2024-11-27] MEDS ORDERED: ALBUT/IPRATROP 3MG/0.5MG NEB 3 ML VIAL NEB SCH (07:00)
--- NOTE | 2024-11-27 07:02 | Hospitalist Progress Note ---
Date of Service November 27, 2024 Assessment & Plan (1) Acute exacerbation of chronic obstructive pulmonary disease (COPD): (2) Influenza: (3) Acute and chronic respiratory failure with hypoxia: (4) Mycobacterium avium complex: (5) Pulmonary nodules/lesions, multiple: (6) Anxiety: Plan 69 year old female with PMHx of COPD with home O2 2-3L/min, 34pack-year tobacco smoking history, MAC infection, anxiety, and insomnia presenting with worsening shortness of breath and desaturations to the low 80s requiring 6L/min NC likely provoked by Flu A, SOB improving and O2 currently improved to home rate of 3L/min. # COPD Exacerbation - Acute on chronic respiratory failure with hypoxia likely provoked by Influenza A - O2 requirement improving, currently on 3L/min saturating mid-90s, uses 2- 3L/min at home Maintain O2>90% Once within a day or 2 of discharge, obtain overnight pulseox at 2L/min, can increase to 3L/min consistently <90% Obtain ABG in AM after overnight pulseox BMP AM Continue home COPD meds Albuterol-Ipratropium 1 puff Q4H PRN - can switch to nebs if needed IV Solumedrol 40mg BID Mucinex, incentive spirometry, flutter valve Emphasize continued smoking cessation Consider palliative consult if has not spoken to palliative at [facility], otherwise discuss ongoing management of symptoms and quality of life while inpatient Followup outpatient to be evaluated for AVAPS utility #Influenza A: Continue Tamiflu Continue home Azithromycin for pulmonary anti-inflammatory effect as a bonus from daily MAC regimen Continue above regimen for COPD exacerbation Droplet precautions CBC AM #MAC Infection: - [facility] [place] ID records reviewed - Initial sputum culture positive September 2022 - Treatment started Nov 2022, patient has since continued on 3 drug regimen of Azithromycin, Ethambutol, and Rifampin, previously completed Amikaycin course. - Negative sputum cx Jul 2023 - no additional sputum samples obtained due to patient difficulty producing sample - per ID note, recommended pulm follow up for consideration of bronch + BAL. - Patient follows with [facility] pulmonology - can likely follow up as an outpatient Continue Azithromycin qAM, Ethambutol qAM, Rifampin qHS Neutropenic precautions Spoke with [facility] ID, Dr. Swati Issa 11/27/24 to give update, no changes in MAC abx for now, wants to have telehealth appt soon since it's been 7mos Chronic Conditions: Anxiety- continue Celexa Insomnia- continue Trazodone Dispo: medical Diet: Regular VTE ppx: Lovenox Full Code Admission and Anticipated Discharge Date Admission Date: November 26, 2024 Supervising Physician Co-Signing Physician Notes I personally examined the patient and verified all martin points of history and exam, discussed case, and agree with decision making with Dr Everett slowly feeling better. Still short of breath with exertion but less than yesterday. Vitals noted, in general she is awake and alert pleasant no distress. HEENT normocephalic atraumatic mucous membranes moist. Breathing unlabored no accessory muscle use good effort. faint scattered wheezing and rhonchi diffusely modest air entry. Skin without rashes pallor or icterus. Thin appearing. Flu, COPD exacerbation, acute on chronic respiratory failure with hypoxia all superimposed on MAC as well as baseline COPDcontinue steroids, continue supportive care. Adding hypertonic saline nebulizers Showing slow improvement. Anticipate overnight pulse ox and a.m. blood gas once she is within 24-48 hours of dischargewe discussed it seems highly unlikely that she will be leaving in the next 24therefore holding off for now. Underweight with BMI of 17.5likely relates to the severity of her chronic lung disease. DVT proph - lovenox Subjective Milagro was seen and evaluated at bedside this AM, appearing in no acute distress, NC set to 3L/min in place. States she is having a little better of an appetite today, though at baseline doesn't have a big appetite. This morning she continues to feel a bit better than she did last night, able to breathe without issue on 3L/min when lying in bed, but was slightly short of breath as she has just gotten back into bed from bedside commode. Continuing to use flutter valve and breathing treatments. Notes a bit of nausea yesterday but took Zofran which helped a lot, denies any vomiting. Denies any other concerning symptoms at this time. States that she typically has Telehealth appointments with her ID doctor, Dr. Swati Issa, who is based in [place]. Notes she doesn't have a followup to her knowledge, but open to one since she's in the hospital again. Review of Systems Review of Systems: denies fever, body aches, chills, sweats, hemoptysis, nausea/vomiting. Physical Exam Physical Exam: General: A&Ox3, appearing frail and in mild distress, nontoxic in appearance CV: RRR, +s1/s2, no m/r/g Respiratory: decreased air movement b/l, soft scattered wheezes, otherwise clear to auscultation b/l, no retractions seen GI/Abdominal: +BS, abdomen soft, non-tender, non-distended MSK: 5/5 strength in all extremities Neuro: no facial droop, speech intact, no sensory deficits Extremities: No lower extremity edema, calves non-tender b/l, wiggles fingers and toes on command Skin: warm, dry, intact Results & Data Results & Data Vital Signs (Past 12 Hours) Vital Signs Temp Pulse Resp BP Pulse Ox O2 Del Method O2 Flow Rate 11/27/24 02:25 93 Nasal Cannula 3 11/26/24 22:35 Nasal Cannula 3 11/26/24 21:56 37.0 C 104 H 20 152/71 H 89 L Nasal Cannula 3 11/26/24 19:43 82 22 94 Nasal Cannula 3 11/26/24 19:09 36.8 C 78 18 148/80 H 96 Nasal Cannula 3 Resident Activity Tracking Resident Involvement: Resident Care Provided Care Provided: Adult Hospital Medicine
[2024-11-27 07:14] LABS: Calcium 8.7 mg/dl (8.6-10.3); Creatinine Clr Calc Pharmacy 67.9 ml/min; Potassium 4.2 mmol/L (3.5-5.1)
[2024-11-27] MEDS: ONDANSETRON INJ 2 MG/ML 2 ML VIAL IV PRN (07:32)
--- NOTE | 2024-11-27 14:13 | Billing Data ---
Date of Service November 27, 2024 Coding Level of Care Code 09234 SUB INP/OBS CARE
[2024-11-27] MEDS: SODIUM CHLOR 7% 4 ML NEB NEB SCH (20:08)
[2024-11-28 06:38] LABS: Hematocrit (blood only) 35.2 % (37.0-47.0); Hemoglobin 11.6 g/dl (12.0-16.0); Mean Corpuscular Hemoglobin 31.4 pg (25.0-34.0); Mean Corpuscular Volume 95.4 fL (80.0-100.0); Mean Platelet Volume 9.2 fL (9.4-12.4); Platelet Count 187 K/uL (130-400); RDW Coefficient of Variation 12.2 % (11.5-14.5); RDW Standard Deviation 42.5 fL (36.4-46.3); Red Blood Count 3.69 M/uL (4.20-5.40); White Blood Count 3.33 K/ul (4.8-10.8)
--- NOTE | 2024-11-28 06:51 | Hospitalist Progress Note ---
Date of Service November 28, 2024 Assessment & Plan (1) Acute exacerbation of chronic obstructive pulmonary disease (COPD): (2) Influenza: (3) Acute and chronic respiratory failure with hypoxia: (4) Mycobacterium avium complex: (5) Pulmonary nodules/lesions, multiple: (6) Anxiety: Plan 69 year old female with PMHx of COPD with home O2 2-3L/min, 34pack-year tobacco smoking history, MAC infection, anxiety, and insomnia presenting with worsening shortness of breath and desaturations to the low 80s requiring 6L/min NC likely provoked by Flu A, SOB improving and O2 currently improved to home rate of 3L/min. # COPD Exacerbation - Acute on chronic respiratory failure with hypoxia likely provoked by Influenza A - O2 requirement improving, currently on 3L/min saturating mid to high 90s. She uses 2-3L/min at home. Consider reducing to 2L today with trial of overnight continuous pulse ox tonight Maintain O2>90% Once within a day or 2 of discharge, obtain overnight pulse ox at 2L/min, can increase to 3L/min consistently <90% Obtain ABG in AM after overnight pulseox BMP AM Continue home COPD meds Albuterol-Ipratropium 1 puff Q4H PRN - can switch to nebs if needed IV Solumedrol 40mg BID Mucinex, incentive spirometry, flutter valve Emphasize continued smoking cessation Consider palliative consult if has not spoken to palliative at [facility], otherwise discuss ongoing management of symptoms and quality of life while inpatient Followup outpatient to be evaluated for AVAPS utility #Influenza A: Continue Tamiflu Continue home Azithromycin for pulmonary anti-inflammatory effect as a bonus from daily MAC regimen Continue above regimen for COPD exacerbation Droplet precautions CBC AM #MAC Infection: - [facility] ID records reviewed - Initial sputum culture positive September 2022 - Treatment started Nov 2022, patient has since continued on 3 drug regimen of Azithromycin, Ethambutol, and Rifampin, previously completed Amikaycin course. - Negative sputum cx Jul 2023 - no additional sputum samples obtained due to patient difficulty producing sample - per ID note, recommended pulm follow up for consideration of bronch + BAL. - Patient follows with [facility] pulmonology - can likely follow up as an outpatient Continue Azithromycin qAM, Ethambutol qAM, Rifampin qHS Neutropenic precautions Spoke with [facility] ID, Dr. Swati Issa 11/27/24 to give update, no changes in MAC abx for now, wants to have telehealth appt soon since it's been 7mos Chronic Conditions: Anxiety- continue Celexa Insomnia- continue Trazodone Dispo: medical Diet: Regular VTE ppx: Lovenox Full Code Admission and Anticipated Discharge Date Admission Date: November 26, 2024 Supervising Physician Co-Signing Physician Notes I personally examined the patient and verified all martin points of history and exam, discussed case, and agree with decision making with Dr Streeter continues to slowly feel better. less KAYE but still requiring assistance when she gets up. Vitals noted, in general she is awake and alert pleasant no distress. HEENT normocephalic atraumatic mucous membranes moist. Breathing unlabored no accessory muscle use good effort. Skin without rashes pallor or icterus. Thin appearing. Flu, COPD exacerbation, acute on chronic respiratory failure with hypoxia all superimposed on MAC as well as baseline COPDcontinue steroids, continue supportive care. continues to show slow improvement - continue current care. Anticipate overnight pulse ox and a.m. blood gas once she is within 24-48 hours of dischargewe discussed it seems highly unlikely that she will be leaving in the next 24therefore holding off for now. Underweight with BMI of 17.5likely relates to the severity of her chronic lung disease. DVT proph - lovenox Subjective Pt is a 69 yo female who presents for AHRF and SOB in setting of flu A with a history of MAC. No acute events over night. This morning, she continues to report SOB and decreased appetite. She states she had difficulty sleeping last night due to cough and feeling SOB. She remains on 3L oxygen via NC this morning. Pt denies chest pain, vomiting, diarrhea, abdominal pain, new joint pains She endorses chills, pain at lower right ribs when coughing, generalized fatigue/weakness, and nausea Review of Systems Review of Systems: As per HPI Physical Exam Physical Exam: General: A&Ox3, appearing frail and in mild distress, nontoxic in appearance CV: RRR, +s1/s2, no m/r/g Respiratory: decreased air movement b/l, soft scattered expiratory wheezes, otherwise clear to auscultation b/l, no retractions seen GI/Abdominal: +BS, abdomen soft, non-tender, non-distended MSK: Able to move all extremities upon command Neuro: no facial droop, speech intact, no sensory deficits Extremities: No lower extremity edema, 2+ radial and pedal pulses Skin: warm, dry, intact, no rashes noted Results & Data Results & Data Vital Signs (Past 12 Hours) Vital Signs Temp Pulse Resp BP Pulse Ox O2 Del Method O2 Flow Rate 11/27/24 21:12 36.5 C 92 H 15 139/61 92 Nasal Cannula 3 11/27/24 20:08 82 18 99 Nasal Cannula 3 11/27/24 19:40 Nasal Cannula 2 Laboratory Results 11/28/24 Range/Units 06:15 WBC 3.33 L (4.8-10.8) K/ul RBC 3.69 L (4.20-5.40) M/uL Hgb 11.6 L (12.0-16.0) g/dl Hct 35.2 L (37.0-47.0) % MCV 95.4 (80.0-100.0) fL MCH 31.4 (25.0-34.0) pg MCHC 33.0 (32.0-36.0) g/dL RDW Std Deviation 42.5 (36.4-46.3) fL RDW Coeff of Betty 12.2 (11.5-14.5) % Plt Count 187 (130-400) K/uL MPV 9.2 L (9.4-12.4) fL Sodium 139 (136-145) mmol/L Potassium 4.0 (3.5-5.1) mmol/L Chloride 101 (98-107) mmol/L Carbon Dioxide 34 H (21-32) mmol/L Anion Gap 4 (3-11) BUN 14 (6-23) mg/dl Creatinine 0.54 L (0.6-1.2) mg/dl Est Cr Clr Drug Dosing 74.2 ml/min eGFR 98.37 BUN/Creatinine Ratio 25.9 H (10-20) Glucose 90 (70-99(Fasting)) mg/dl Calcium 8.5 L (8.6-10.3) mg/dl Resident Activity Tracking Resident Involvement: Resident Care Provided Care Provided: Adult [facility]
[2024-11-28 06:55] LABS: BUN Creatinine Ratio 25.9 (10-20); Calcium 8.5 mg/dl (8.6-10.3); Creatinine Clr Calc Pharmacy 74.2 ml/min
--- NOTE | 2024-11-28 10:45 | Billing Data ---
Date of Service November 28, 2024 Coding Level of Care Code 29758 SUB INP/OBS CARE
[2024-11-28] MEDS: ACETAMINOPHEN 325 MG TAB PO PRN (16:20)
--- NOTE | 2024-11-29 07:02 | Hospitalist Progress Note ---
Date of Service November 29, 2024 Assessment & Plan (1) Acute exacerbation of chronic obstructive pulmonary disease (COPD): (2) Influenza: (3) Acute and chronic respiratory failure with hypoxia: (4) Mycobacterium avium complex: (5) Pulmonary nodules/lesions, multiple: (6) Anxiety: Plan 69 year old female with PMHx of COPD with home O2 2-3L/min, 34pack-year tobacco smoking history, MAC infection, anxiety, and insomnia presenting with worsening shortness of breath and desaturations to the low 80s requiring 6L/min NC likely provoked by Flu A, SOB improving and O2 currently improved to home rate of 2L/min. # COPD Exacerbation - Acute on chronic respiratory failure with hypoxia likely provoked by Influenza A - O2 requirement improving, currently on 2L/min saturating mid to low 90s. She uses 2-3L/min at home. Maintain O2>90% Once within a day or 2 of discharge, obtain overnight pulse ox at 2L/min, can increase to 3L/min consistently <90% Obtain ABG in AM after overnight pulse ox BMP AM Continue home COPD meds Albuterol-Ipratropium 1 puff Q4H PRN - can switch to nebs if needed Increased IV Solumedrol 40mg to TID Mucinex, incentive spirometry, flutter valve Emphasize continued smoking cessation Consider palliative consult if has not spoken to palliative at [facility], otherwise discuss ongoing management of symptoms and quality of life while inpatient Followup outpatient to be evaluated for AVAPS utility #Influenza A: Continue Tamiflu x 2 days Continue home Azithromycin for pulmonary anti-inflammatory effect as a bonus from daily MAC regimen Continue above regimen for COPD exacerbation Droplet precautions #MAC Infection: - [facility] ID records reviewed - Initial sputum culture positive September 2022 - Treatment started Nov 2022, patient has since continued on 3 drug regimen of Azithromycin, Ethambutol, and Rifampin, previously completed Amikaycin course. - Negative sputum cx Jul 2023 - no additional sputum samples obtained due to patient difficulty producing sample - per ID note, recommended pulm follow up for consideration of bronch + BAL. - Patient follows with [facility] pulmonology - can likely follow up as an outpatient Continue Azithromycin qAM, Ethambutol qAM, Rifampin qHS Neutropenic precautions Spoke with [facility] ID, Dr. Swati Issa 11/27/24 to give update, no changes in MAC abx for now, wants to have telehealth appt soon since it's been 7mos Chronic Conditions: Anxiety- continue Celexa Insomnia- continue Trazodone Dispo: medical Diet: Regular VTE ppx: Lovenox Full Code Admission and Anticipated Discharge Date Admission Date: November 26, 2024 Supervising Physician Co-Signing Physician Notes I personally examined the patient and verified all martin points of history and exam, discussed case, and agree with decision making with Dr Streeter feeling a bit worse breathing feeling harder/tighter. no f/c/s. KAYE. vitals noted nad heent nc at mmm fatigued lungs tighter more diminished and harsh. no focal neuro deficits. Flu, COPD exacerbation, acute on chronic respiratory failure with hypoxia all superimposed on MAC as well as baseline COPDfeeling a little worse. nothing on Hx or PE suggestive of new/secondary infection - suspect all COPD/bronchospasm - increased nebs, increase steroids, conitnue to follow. Anticipate overnight pulse ox and a.m. blood gas to qualify for trelogy/AVAPS once she is within 24- 48 hours of dischargewe discussed it seems highly unlikely that she will be leaving in the next 24therefore holding off for now. Underweight with BMI of 17.5likely relates to the severity of her chronic lung disease. DVT proph - lovenox Subjective Pt is a 69 yo female who presents for AHRF and SOB in setting of flu A with a history of MAC. No acute events over night. This morning, pt reports she had a terrible night of SOB and coughing. She does feel as though her appetite has improved and she ate more of her dinner last night. She continues with some nausea with bouts of coughing, but denies vomiting. Pt denies fever/chills, chest pain, diarrhea, abdominal pain, new joint pains She endorses pain at lower right ribs when coughing, generalized fatigue/weakness, and nausea Review of Systems Review of Systems: As per HPI Physical Exam Physical Exam: General: A&Ox3, appearing frail and in mild distress, nontoxic in appearance CV: RRR, +s1/s2, no m/r/g Respiratory: decreased air movement b/l, soft scattered expiratory wheezes, otherwise clear to auscultation b/l, no retractions seen GI/Abdominal: +BS, abdomen soft, non-tender, non-distended MSK: Able to move all extremities upon command Neuro: no facial droop, speech intact, no sensory deficits Extremities: No lower extremity edema, 2+ radial and pedal pulses Skin: warm, dry, intact, no rashes noted Results & Data Results & Data Vital Signs (Past 12 Hours) Vital Signs Temp Pulse Resp BP Pulse Ox O2 Del Method O2 Flow Rate 11/29/24 04:22 90 22 92 Nasal Cannula 2 11/28/24 20:17 80 18 97 Nasal Cannula 2 11/28/24 19:49 36.5 C 78 18 132/72 94 Nasal Cannula 2 11/28/24 19:26 Nasal Cannula 2 Resident Activity Tracking Resident Involvement: Resident Care Provided Care Provided: Adult Hospital Medicine
[2024-11-29] MEDS: methylPREDNISolone 40 MG in SYRINGE 0 ML IV SCH (13:43)
[2024-11-29] MEDS: ALBUT/IPRATROP 3MG/0.5MG NEB 3 ML VIAL NEB SCH (15:34)
--- NOTE | 2024-11-29 16:57 | Billing Data ---
Date of Service November 29, 2024 Coding Level of Care Code 79698 SUB INP/OBS CARE 3MIN
--- NOTE | 2024-11-30 07:43 | Hospitalist Progress Note ---
Date of Service November 30, 2024 Assessment & Plan (1) Acute exacerbation of chronic obstructive pulmonary disease (COPD): (2) Influenza: (3) Acute and chronic respiratory failure with hypoxia: (4) Mycobacterium avium complex: (5) Pulmonary nodules/lesions, multiple: (6) Anxiety: Plan 69 year old female with PMHx of COPD with home O2 2-3L/min, 34pack-year tobacco smoking history, MAC infection, anxiety, and insomnia presenting with worsening shortness of breath and desaturations to the low 80s requiring 6L/min NC likely provoked by Flu A, SOB improving and O2 currently improved to home rate of 2L/min. # COPD Exacerbation - Acute on chronic respiratory failure with hypoxia likely provoked by Influenza A - O2 requirement improving, currently on 2L/min maintaining saturation at 97. She uses 2-3L/min at home. - Once within 24 to 48 hour of discharge, Anticipate Overnight pulse oximetry and ABG to qualify for trelogy/AVAPS - BMP AM -Albuterol Switched to Nebulization 3ml every 4 hrly -Increased IV Solumedrol 40mg to TID -Fluticasone Furoate 1 puff daily; Anoro 1 puff daily -Mucinex, incentive spirometry, flutter valve -Emphasize continued smoking cessation -Consider palliative consult if has not spoken to palliative at [facility], otherwise discuss ongoing management of symptoms and quality of life while inpatient -Followup outpatient to be evaluated for Average Volume Assured Pressure Support( AVAPS) utility #Influenza A: -Continue Tamiflu 75mg PO BID -Continue home Azithromycin for pulmonary anti-inflammatory effect as a bonus from daily MAC regimen -Continue above regimen for COPD exacerbation -Droplet precautions #MAC Infection: - [facility] ID records reviewed - Initial sputum culture positive September 2022 - Treatment started Nov 2022, patient has since continued on 3 drug regimen of Azithromycin, Ethambutol, and Rifampin, previously completed Amikaycin course. - Negative sputum cx Jul 2023 - no additional sputum samples obtained due to patient difficulty producing sample - per ID note, recommended pulm follow up for consideration of bronch + BAL. - Patient follows with [facility] pulmonology - can likely follow up as an outpatient -Continue Azithromycin qAM, Ethambutol qAM, Rifampin qHS -Neutropenic precautions -Spoke with [facility] ID, Dr. Swati Issa 11/27/24 to give update, no changes in MAC abx for now, wants to have telehealth appt soon since it's been 7mos Chronic Conditions: Anxiety- continue Celexa Insomnia- continue Trazodone Dispo: medical Diet: Regular VTE ppx: Lovenox Full Code Admission and Anticipated Discharge Date Admission Date: November 26, 2024 Supervising Physician Co-Signing Physician Notes I personally examined the patient and verified martin points of history and exam, discussed case, and agree with decision making and plan documented by Dr. Davis. On exam, patient appears frail, diffuse decreased breath sounds in all lobes with inspiratory wheezing, regular rate and rhythm, no acute distress. Continuing Tamiflu, azithromycin, and Solu-Medrol for COPD exacerbation in setting of influenza. Currently on home O2 requirement. Subjective Pt is a 69 yo female who presents for AHRF and SOB in setting of flu A with a history of MAC. No acute events over night. No fresh complains. This morning, pt reports she slept better than last night.She still has Shortness of breath which is same as that of yesterday. Cough is getting better She does feel as though her appetite has improved. She continues with nausea but denies vomiting. Pt denies fever/chills, chest pain, diarrhea, abdominal pain, new joint pains She endorses pain at lower right ribs when coughing,better with Tylenol; generalized fatigue/weakness and B/L leg cramping Review of Systems Review of Systems: As per HPI Physical Exam Physical Exam: General: A&Ox3, appearing frail and in mild distress, nontoxic in appearance CV: RRR, +s1/s2, no m/r/g Respiratory: decreased air movement b/l, soft scattered expiratory wheezes, otherwise clear to auscultation b/l, no retractions seen GI/Abdominal: +BS, abdomen soft, non-tender, non-distended MSK: Able to move all extremities upon command Neuro: no facial droop, speech intact, no sensory deficits Extremities: No lower extremity edema, 2+ radial and pedal pulses Skin: warm, dry, intact, no rashes noted Results & Data Results & Data Vital Signs (Past 12 Hours) Vital Signs Temp Pulse Resp BP Pulse Ox O2 Del Method O2 Flow Rate 11/30/24 07:12 90 19 97 Nasal Cannula 2 11/29/24 22:52 85 17 94 Nasal Cannula 2 11/29/24 20:39 82 16 95 Nasal Cannula 2 11/29/24 19:56 36.3 C L 76 16 124/70 94 Nasal Cannula 2
[2024-12-01 07:14] LABS: Basophils # (auto) 0.02 K/uL (0.00-0.20); Basophils % (auto) 0.3 %; Eosinophils # (auto) 0.01 K/uL (0.00-0.50); Eosinophils % (auto) 0.2 %; Hematocrit (blood only) 41.7 % (37.0-47.0); Hemoglobin 13.3 g/dl (12.0-16.0); Immature Granulocytes # (auto) 0.03 K/uL (0.01-0.20); Immature Granulocytes % (auto) 0.5 %; Lymphocytes # (auto) 2.14 K/uL (1.20-3.40); Lymphocytes % (auto) 33.9 %; Mean Corpuscular Hemoglobin 31.1 pg (25.0-34.0); Mean Corpuscular Hgb Conc 31.9 g/dL (32.0-36.0); Mean Corpuscular Volume 97.7 fL (80.0-100.0); Mean Platelet Volume 8.9 fL (9.4-12.4); Monocytes # (auto) 0.68 K/uL (0.11-0.59); Monocytes % (auto) 10.8 %; Neutrophils # (auto) 3.44 K/uL (1.40-6.50); Neutrophils % (auto) 54.3 %; Platelet Count 379 K/uL (130-400); RDW Coefficient of Variation 12.7 % (11.5-14.5); RDW Standard Deviation 45.5 fL (36.4-46.3); Red Blood Count 4.27 M/uL (4.20-5.40); White Blood Count 6.32 K/ul (4.8-10.8)
[2024-12-01 07:39] LABS: Albumin Globulin Ratio 1.1 (0.9-2); Albumin Level 3.8 gm/dl (3.4-5.0); BUN Creatinine Ratio 28.4 (10-20); Bilirubin,Total 0.6 mg/dl (0.2-1.0); Calcium 9.3 mg/dl (8.6-10.3); Creatinine Clr Calc Pharmacy 59.8 ml/min; Globulin 3.5 gm/dl (2.5-4.0); Potassium 4.7 mmol/L (3.5-5.1); Total Protein 7.3 gm/dl (6.0-8.3)
--- NOTE | 2024-12-01 09:12 | Hospitalist Progress Note ---
Date of Service December 01, 2024 Assessment & Plan (1) Acute exacerbation of chronic obstructive pulmonary disease (COPD): (2) Influenza: (3) Acute and chronic respiratory failure with hypoxia: (4) Mycobacterium avium complex: (5) Pulmonary nodules/lesions, multiple: (6) Anxiety: Plan 69 year old female with PMHx of COPD with home O2 2-3L/min, 34pack-year tobacco smoking history, MAC infection, anxiety, and insomnia presenting with worsening shortness of breath and desaturations to the low 80s requiring 6L/min NC likely provoked by Flu A, SOB improving and O2 currently improved to home rate of 2L/min. # COPD Exacerbation - Acute on chronic respiratory failure with hypoxia likely provoked by Influenza A - O2 requirement improving, currently on 2L/min maintaining saturation at 97. She uses 2-3L/min at home. - Once within 24 to 48 hour of discharge, Anticipate Overnight pulse oximetry and ABG to qualify for trelogy/AVAPS - BMP AM - Albuterol Switched to Nebulization 3ml every 4 hrly - Stop IV Solumedrol and switch to PO steroids. Start Prednisolone 40 mg PO QAM and will taper steroids gradually. -Fluticasone Furoate 1 puff daily; Anoro 1 puff daily -Mucinex, incentive spirometry, flutter valve -Emphasize continued smoking cessation -Followup outpatient to be evaluated for Average Volume Assured Pressure Support( AVAPS) utility #Tachycardia - Today 10:23: HR was 114 -EKG ordered: shows NSR, No significant change compared to previous EKG -May be due to Albuterol #Influenza A: - Cintinue Tamiflu 75mg PO BID -Continue home Azithromycin for pulmonary anti-inflammatory effect as a bonus from daily MAC regimen -Continue above regimen for COPD exacerbation -Droplet precautions #MAC Infection: - [facility] [place] ID records reviewed - Initial sputum culture positive September 2022 - Treatment started Nov 2022, patient has since continued on 3 drug regimen of A zithromycin, Ethambutol, and Rifampin, previously completed Amikaycin course. - Negative sputum cx Jul 2023 - no additional sputum samples obtained due to patient difficulty producing sample - per ID note, recommended pulm follow up for consideration of bronch + BAL. - Patient follows with [facility] pulmonology - can likely follow up as an outpatient -Continue Azithromycin qAM, Ethambutol qAM, Rifampin qHS -Neutropenic precautions -Spoke with [facility] ID, Dr. Swati Issa 11/27/24 to give update, no changes in MAC abx for now, wants to have telehealth appt soon since it's been 7mos Chronic Conditions: Anxiety- continue Celexa Insomnia- continue Trazodone Dispo: medical Diet: Regular VTE ppx: Lovenox Full Code Admission and Anticipated Discharge Date Admission Date: November 26, 2024 Supervising Physician Co-Signing Physician Notes I personally examined the patient and verified martin points of history and exam, discussed case, and agree with decision making and plan documented by Dr. Davis. On exam, patient appears frail, diffuse decreased breath sounds in all lobes with inspiratory wheezing, regular rate and rhythm, no lower extremity edema, no acute distress. Patient completed Tamiflu, remains on azithromycin, and now weaning steroids with oral prednisone for COPD exacerbation in setting of influenza. Currently on home O2 requirement. Still feeling short of breath with ambulation. Reviewed recommendation of rehab by physical therapy, patient hopes to return home with home PT. Subjective Pt is a 69 yo female who presents for AHRF and SOB in setting of flu A with a history of MAC. No acute events over night. No fresh complains. She stated she didnot sleep well due to Shortness of breath,She mentioned her SOB is worse than yesterday. Cough is getting better. She feels like something is coming out but not cough.She does feel as though her appetite has improved. Her nausea is better today Pt denies fever/chills, chest pain, diarrhea, abdominal pain. She endorses pain at lower right ribs which is constant now,better with Tylenol; generalized fatigue/weakness and B/L leg cramping Review of Systems Review of Systems: As per HPI Physical Exam Physical Exam: General: A&Ox3, appearing frail and in mild distress, nontoxic in appearance CV: RRR, +s1/s2, no m/r/g Respiratory: decreased air movement b/l, soft scattered expiratory wheezes, otherwise clear to auscultation b/l, no retractions seen GI/Abdominal: +BS, abdomen soft, non-tender, non-distended MSK: Able to move all extremities upon command Neuro: no facial droop, speech intact, no sensory deficits Extremities: No lower extremity edema Skin: warm, dry, intact Results & Data Results & Data Vital Signs (Past 12 Hours) Vital Signs Temp Pulse Pulse Resp BP Pulse Ox O2 Del Method 12/01/24 08:02 36.7 C 120 H 18 140/72 94 Nasal Cannula 12/01/24 07:24 101 H 20 96 Nasal Cannula 12/01/24 05:08 85 18 98 Nasal Cannula O2 Flow Rate 12/01/24 08:02 12/01/24 07:24 2 12/01/24 05:08 2
--- NOTE | 2024-12-01 17:15 | Electrocardiogram Report ---
Test Reason : Blood Pressure : */* mmHG Vent. Rate : 92 BPM Atrial Rate : 92 BPM P-R Int : 116 ms QRS Dur : 88 ms QT Int : 348 ms P-R-T Axes : 77 58 78 degrees QTcB Int : 430 ms Poor data quality, interpretation may be adversely affected Normal sinus rhythm Normal ECG When compared with ECG of 25-Nov-2024 20:01, No significant change was found Confirmed by Niall Phillips ([id number]) on 12/01/2024 5:15:25 PM Referred By: REFERRED SELF Confirmed By: Niall Phillips
[2024-12-02 07:06] LABS: Basophils # (auto) 0.02 K/uL (0.00-0.20); Basophils % (auto) 0.3 %; Eosinophils # (auto) 0.06 K/uL (0.00-0.50); Hematocrit (blood only) 38.6 % (37.0-47.0); Hemoglobin 12.3 g/dl (12.0-16.0); Immature Granulocytes # (auto) 0.03 K/uL (0.01-0.20); Immature Granulocytes % (auto) 0.5 %; Lymphocytes # (auto) 2.03 K/uL (1.20-3.40); Lymphocytes % (auto) 32.5 %; Mean Corpuscular Hemoglobin 31.2 pg (25.0-34.0); Mean Corpuscular Hgb Conc 31.9 g/dL (32.0-36.0); Mean Platelet Volume 8.9 fL (9.4-12.4); Monocytes # (auto) 0.84 K/uL (0.11-0.59); Monocytes % (auto) 13.4 %; Neutrophils # (auto) 3.27 K/uL (1.40-6.50); Neutrophils % (auto) 52.3 %; Platelet Count 371 K/uL (130-400); RDW Coefficient of Variation 12.7 % (11.5-14.5); RDW Standard Deviation 45.6 fL (36.4-46.3); Red Blood Count 3.94 M/uL (4.20-5.40); White Blood Count 6.25 K/ul (4.8-10.8)
[2024-12-02 07:15] LABS: Albumin Globulin Ratio 1.2 (0.9-2); Albumin Level 3.6 gm/dl (3.4-5.0); BUN Creatinine Ratio 29.2 (10-20); Bilirubin,Total 0.5 mg/dl (0.2-1.0); Calcium 9.1 mg/dl (8.6-10.3); Creatinine Clr Calc Pharmacy 55.7 ml/min; Globulin 2.9 gm/dl (2.5-4.0); Potassium 4.1 mmol/L (3.5-5.1); Total Protein 6.5 gm/dl (6.0-8.3)
--- NOTE | 2024-12-02 08:05 | Hospitalist Progress Note ---
Date of Service December 02, 2024 Assessment & Plan (1) Acute exacerbation of chronic obstructive pulmonary disease (COPD): (2) Influenza: (3) Acute and chronic respiratory failure with hypoxia: (4) Mycobacterium avium complex: (5) Pulmonary nodules/lesions, multiple: (6) Anxiety: Plan 69 year old female with PMHx of COPD with home O2 2-3L/min, 34pack-year tobacco smoking history, MAC infection, anxiety, and insomnia presenting with worsening shortness of breath and desaturations to the low 80s requiring 6L/min NC likely provoked by Flu A, SOB improving and O2 currently improved to home rate of 2L/min. # COPD Exacerbation - Acute on chronic respiratory failure with hypoxia likely provoked by Influenza A - O2 requirement improving, currently on 2L/min maintaining saturation at 97. She uses 2-3L/min at home. - Ordered Overnight pulse oximetry and ABG to qualify for trelogy/AVAPS - BMP AM - Albuterol changed to PRN. Patient is tachycardic. Albuterol likely contributing to tachycardia. - Stop IV Solumedrol and switch to PO steroids. Prednisolone 40 mg PO QAM and will taper steroids gradually. -Fluticasone Furoate 1 puff daily; Anoro 1 puff daily -Mucinex, incentive spirometry, flutter valve -Emphasize continued smoking cessation -Followup outpatient to be evaluated for Average Volume Assured Pressure Support( AVAPS) utility #Tachycardia - Today 10:23: HR was 114 -EKG ordered: shows NSR, No significant change compared to previous EKG -May be due to Albuterol #Influenza A: -Completed dose of Tamiflu -Has been removed from droplet precautions. -Continue home Azithromycin for pulmonary anti-inflammatory effect as a bonus from daily MAC regimen -Continue above regimen for COPD exacerbation #MAC Infection: - [facility] [place] ID records reviewed - Initial sputum culture positive September 2022 - Treatment started Nov 2022, patient has since continued on 3 drug regimen of Azithromycin, Ethambutol, and Rifampin, previously completed Amikaycin course. - Negative sputum cx Jul 2023 - no additional sputum samples obtained due to patient difficulty producing sample - per ID note, recommended pulm follow up for consideration of bronch + BAL. - Patient follows with [facility] pulmonology - can likely follow up as an outpatient -Continue Azithromycin qAM, Ethambutol qAM, Rifampin qHS Chronic Conditions: Anxiety- continue Celexa Insomnia- continue Trazodone Dispo: medical Diet: Regular VTE ppx: Lovenox Full Code Admission and Anticipated Discharge Date Admission Date: November 26, 2024 Supervising Physician Co-Signing Physician Notes I personally examined the patient and verified martin points of history and exam, discussed case, and agree with decision making and plan documented by Dr. Davis. On exam, patient appears frail, diffuse decreased breath sounds in all lobes without wheezing, regular rate and rhythm, no lower extremity edema, no acute distress. Continue azithromycin and steroid wean with oral prednisone. Currently on home O2 requirement. Patient now open to rehabilitation, CM aware. Subjective Pt is a 69 yo female who presents for AHRF and SOB in setting of flu A with a history of MAC. No acute events over night. No fresh complains. Her Shortness of breath is better today. Cough is better than yesterday. Appetite is improved Her nausea is better today Pt denies fever/chills, chest pain, diarrhea, abdominal pain, leg cramping. She reported pain in left lower ribs has subsided now. Review of Systems Review of Systems: As per HPI Physical Exam 2 Physical Exam: General: A&Ox3, appearing frail and in mild distress, nontoxic in appearance CV: RRR, +s1/s2, no m/r/g Respiratory: decreased air movement b/l, soft scattered expiratory wheezes, otherwise clear to auscultation b/l, no retractions seen GI/Abdominal: +BS, abdomen soft, non-tender, non-distended MSK: Able to move all extremities upon command Neuro: no facial droop, speech intact, no sensory deficits Extremities: No lower extremity edema Skin: warm, dry, intact Results & Data Results & Data Vital Signs (Past 12 Hours) Vital Signs Temp Pulse Pulse Resp BP Pulse Ox O2 Del Method 12/02/24 07:24 36.3 C L 91 H 16 116/74 99 Nasal Cannula 12/02/24 07:06 105 H 18 95 Nasal Cannula 12/01/24 23:30 83 16 98 Nasal Cannula 12/01/24 22:44 Nasal Cannula 12/01/24 20:52 107 H 20 92 Nasal Cannula O2 Flow Rate 12/02/24 07:24 2 12/02/24 07:06 2 12/01/24 23:30 2 02/18/25 22:44 2 12/01/24 20:52 2
[2024-12-02] MEDS: predniSONE 20 MG TAB PO SCH (09:30)
[2024-12-02 20:34] LABS: Base Excess ABG 7.6 mEq/L (-9-1.8); HCO3 ABG 34 mmol/L (19-24); Oxygen Saturation ABG 98.1 % (90-95); PCO2 ABG 52 mmHg (35-46); PO2 ABG 80 mmHg (80-95); pH ABG 7.42 (7.35-7.45)
[2024-12-02 20:35] LABS: Allen Test Pos (Pos)
[2024-12-03 06:57] LABS: Basophils # (auto) 0.02 K/uL (0.00-0.20); Basophils % (auto) 0.3 %; Eosinophils # (auto) 0.08 K/uL (0.00-0.50); Eosinophils % (auto) 1.1 %; Hematocrit (blood only) 38.5 % (37.0-47.0); Hemoglobin 12.3 g/dl (12.0-16.0); Immature Granulocytes # (auto) 0.04 K/uL (0.01-0.20); Immature Granulocytes % (auto) 0.5 %; Lymphocytes # (auto) 2.16 K/uL (1.20-3.40); Lymphocytes % (auto) 29.7 %; Mean Corpuscular Hemoglobin 31.7 pg (25.0-34.0); Mean Corpuscular Hgb Conc 31.9 g/dL (32.0-36.0); Mean Corpuscular Volume 99.2 fL (80.0-100.0); Mean Platelet Volume 8.8 fL (9.4-12.4); Monocytes # (auto) 0.99 K/uL (0.11-0.59); Monocytes % (auto) 13.6 %; Neutrophils # (auto) 3.99 K/uL (1.40-6.50); Neutrophils % (auto) 54.8 %; Platelet Count 402 K/uL (130-400); RDW Coefficient of Variation 12.7 % (11.5-14.5); Red Blood Count 3.88 M/uL (4.20-5.40); White Blood Count 7.28 K/ul (4.8-10.8)
[2024-12-03 07:12] LABS: Albumin Globulin Ratio 1.3 (0.9-2); Albumin Level 3.5 gm/dl (3.4-5.0); BUN Creatinine Ratio 33.8 (10-20); Bilirubin,Total 0.5 mg/dl (0.2-1.0); Creatinine Clr Calc Pharmacy 61.7 ml/min; Globulin 2.8 gm/dl (2.5-4.0); Potassium 4.6 mmol/L (3.5-5.1); Total Protein 6.3 gm/dl (6.0-8.3)
--- NOTE | 2024-12-03 08:19 | Hospitalist Progress Note ---
Date of Service December 03, 2024 Assessment & Plan (1) Acute exacerbation of chronic obstructive pulmonary disease (COPD): (2) Influenza: (3) Acute and chronic respiratory failure with hypoxia: (4) Mycobacterium avium complex: (5) Pulmonary nodules/lesions, multiple: (6) Anxiety: Plan 69 year old female with PMHx of COPD with home O2 2-3L/min, 34pack-year tobacco smoking history, MAC infection, anxiety, and insomnia presenting with worsening shortness of breath and desaturations to the low 80s requiring 6L/min NC likely provoked by Flu A, SOB improving and O2 currently improved to home rate of 2L/min. # COPD Exacerbation - Acute on chronic respiratory failure with hypoxia likely provoked by Influenza A - O2 requirement improving, currently on 2L/min maintaining saturation at 97. She uses 2-3L/min at home. - Overnight pulse oximetry and ABG to qualify for trelogy/AVAPS - Albuterol changed to PRN. Patient is tachycardic. Albuterol likely contributing to tachycardia. - Prednisolone 40 mg PO QAM and will taper steroids gradually. -Fluticasone Furoate 1 puff daily; Anoro 1 puff daily -Mucinex, incentive spirometry, flutter valve -Emphasize continued smoking cessation -Followup outpatient to be evaluated for Average Volume Assured Pressure Support( AVAPS) utility -Can discharge tomorrow. [facility] #Tachycardia -EKG ordered: shows NSR, No significant change compared to previous EKG -May be due to Albuterol. Albuterol changed to PRN #Influenza A: -Completed dose of Tamiflu -Has been removed from droplet precautions. -Continue home Azithromycin for pulmonary anti-inflammatory effect as a bonus from daily MAC regimen -Continue above regimen for COPD exacerbation #MAC Infection: - [facility] [place] ID records reviewed - Initial sputum culture positive September 2022 - Treatment started Nov 2022, patient has since continued on 3 drug regimen of Azithromycin, Ethambutol, and Rifampin, previously completed Amikaycin course. - Negative sputum cx Jul 2023 - no additional sputum samples obtained due to patient difficulty producing sample - per ID note, recommended pulm follow up for consideration of bronch + BAL. - Patient follows with [facility] pulmonology - can likely follow up as an outpatient -Continue Azithromycin qAM, Ethambutol qAM, Rifampin qHS Chronic Conditions: Anxiety- continue Celexa Insomnia- continue Trazodone Dispo: medical Diet: Regular VTE ppx: Lovenox Full Code Admission and Anticipated Discharge Date Admission Date: November 26, 2024 Supervising Physician Co-Signing Physician Notes I personally examined the patient and verified martin points of history and exam, discussed case, and agree with decision making and plan documented by Dr. Davis. Patient feeling much better today after COPD exacerbation due to influenza A. On exam, patient appears frail, diffuse decreased breath sounds without wheezing, regular rate and rhythm. Patient completed Tamiflu, is now back on her home pulmonary regimen. Continue azithromycin/rifampin/ethambutol for MAC. Steroid wean with oral prednisone. Currently on home O2 requirement. Outpatient evaluation for AVAPS. Discharge to rehabilitation planned tomorrow. Subjective Pt is a 69 yo female who presents for AHRF and SOB in setting of flu A with a history of MAC. No acute events over night. No fresh complains. Her Shortness of breath is better today. Cough is better than yesterday. Appetite is improved Her nausea is better today Pt denies fever/chills, chest pain, diarrhea, abdominal pain, leg cramping. She reported pain in left lower ribs has subsided now. Review of Systems Review of Systems: As per HPI Physical Exam Physical Exam: General: A&Ox3, appearing frail and in mild distress, nontoxic in appearance CV: RRR, +s1/s2, no m/r/g Respiratory: decreased air movement b/l, soft scattered expiratory wheezes, otherwise clear to auscultation b/l, no retractions seen GI/Abdominal: +BS, abdomen soft, non-tender, non-distended MSK: Able to move all extremities upon command Neuro: no facial droop, speech intact, no sensory deficits Extremities: No lower extremity edema Skin: warm, dry, intact Results & Data Results & Data Vital Signs (Past 12 Hours) Vital Signs Temp Pulse Pulse Pulse Resp BP Pulse Ox 12/03/24 07:45 93 H 19 93 12/03/24 07:33 36.4 C L 89 16 102/64 95 12/02/24 21:55 109 H 12/02/24 20:40 12/02/24 20:27 36.8 C 110 H 18 141/69 H 95 Pulse Ox O2 Del Method O2 Del Method O2 Flow Rate O2 Flow Rate 12/03/24 07:45 Nasal Cannula 2 12/03/24 07:33 Nasal Cannula 2 12/02/24 21:55 94 Nasal Cannula 2 12/02/24 20:40 Nasal Cannula 2 12/02/24 20:27 Nasal Cannula 2
[2024-12-03] MEDS: ALBUT/IPRATROP 3MG/0.5MG NEB 3 ML VIAL NEB PRN (20:52)
--- NOTE | 2024-12-04 08:34 | Hospitalist Progress Note ---
Date of Service December 04, 2024 Assessment & Plan (1) Acute exacerbation of chronic obstructive pulmonary disease (COPD): (2) Influenza: (3) Acute and chronic respiratory failure with hypoxia: (4) Mycobacterium avium complex: (5) Pulmonary nodules/lesions, multiple: (6) Anxiety: Plan 69 year old female with PMHx of COPD with home O2 2-3L/min, 34pack-year tobacco smoking history, MAC infection, anxiety, and insomnia presenting with worsening shortness of breath and desaturations to the low 80s requiring 6L/min NC likely provoked by Flu A, SOB improving and O2 currently improved to home rate of 2L/min. # COPD Exacerbation - Acute on chronic respiratory failure with hypoxia likely provoked by Influenza A - O2 requirement improving, currently on #L/min maintaining saturation at 97. She uses 2-3L/min at home. - Overnight pulse oximetry and ABG to qualify for trelogy/AVAPS - Albuterol changed to PRN. Patient is tachycardic. Albuterol likely contributing to tachycardia. - Prednisolone 40 mg PO QAM and will taper steroids gradually. -Fluticasone Furoate 1 puff daily; Anoro 1 puff daily -Mucinex, incentive spirometry, flutter valve -Emphasize continued smoking cessation -Followup outpatient to be evaluated for Average Volume Assured Pressure Support( AVAPS) utility -Can discharge tomorrow. Has been accepted by a rehab [facility] [place] Hopefully will be discharged to Rehab Tomorrow if gets preauthorization by her Insurance #Tachycardia -EKG ordered: shows NSR, No significant change compared to previous EKG -May be due to Albuterol. Albuterol changed to PRN #Influenza A: -Completed dose of Tamiflu -Has been removed from droplet precautions. -Continue home Azithromycin for pulmonary anti-inflammatory effect as a bonus from daily MAC regimen -Continue above regimen for COPD exacerbation #MAC Infection: - [facility] [place] ID records reviewed - Initial sputum culture positive September 2022 - Treatment started Nov 2022, patient has since continued on 3 drug regimen of Azithromycin, Ethambutol, and Rifampin, previously completed Amikaycin course. - Negative sputum cx Jul 2023 - no additional sputum samples obtained due to patient difficulty producing sample - per ID note, recommended pulm follow up for consideration of bronch + BAL. - Patient follows with [facility] pulmonology - can likely follow up as an outpatient -Continue Azithromycin qAM, Ethambutol qAM, Rifampin qHS Chronic Conditions: Anxiety- continue Celexa Insomnia- continue Trazodone Dispo: medical Diet: Regular VTE ppx: Lovenox Full Code Admission and Anticipated Discharge Date Admission Date: November 26, 2024 Supervising Physician Co-Signing Physician Notes I personally examined the patient and verified martin points of history and exam, discussed case, and agree with decision making and plan documented by Dr. Davis. Patient feeling much better today after COPD exacerbation due to influenza A. On exam, patient appears frail, diffuse decreased breath sounds without wheezing, regular rate and rhythm. Patient completed Tamiflu, is now back on her home pulmonary regimen. Continue azithromycin/rifampin/ethambutol for MAC. Steroid wean with oral prednisone. Currently on home O2 requirement. Outpatient evaluation for AVAPS. Discharge to rehabilitation planned tomorrow. Subjective I also saw the patient and confirmed martin portions of the history and exam. I agree with the impression and plan as noted in the resident documentation. 69 yo female with history COPD with home O2 2-3L/min, 34pack-year tobacco smoking history, BMI of 17, MAC infection, anxiety, and insomnia who presents for AHRF and SOB in setting of flu A with a history of MAC. Overall, she feels better - was able to ambulate today in the hallway, and while she noted SOB, she also notes that she has this at baseline, Upon exam, good air exchange but wheezing in all sebastian. I suspect close to her baseline. VSS. She is on home O2 level with SPO2 92-95%. Currently awaiting bed in [place]. She lives in [facility] in [place]. Review of Systems Review of Systems: As per HPI Physical Exam Physical Exam: General: A&Ox3, appearing frail and in mild distress, nontoxic in appearance CV: RRR, +s1/s2, no m/r/g Respiratory: decreased air movement b/l, soft scattered expiratory wheezes, otherwise clear to auscultation b/l, no retractions seen GI/Abdominal: +BS, abdomen soft, non-tender, non-distended MSK: Able to move all extremities upon command Neuro: no facial droop, speech intact, no sensory deficits Extremities: No lower extremity edema Skin: warm, dry, intact Results & Data Results & Data Vital Signs (Past 12 Hours) Vital Signs Pulse Resp Pulse Ox O2 Del Method O2 Flow Rate 12/04/24 07:10 94 H 18 95 Nasal Cannula 2.5 12/04/24 03:40 Nasal Cannula 2 12/03/24 20:52 116 H 24 93 Nasal Cannula 2
--- NOTE | 2024-12-05 08:43 | Hospitalist Progress Note ---
Date of Service December 05, 2024 Assessment & Plan (1) Acute exacerbation of chronic obstructive pulmonary disease (COPD): (2) Influenza: (3) Acute and chronic respiratory failure with hypoxia: (4) Mycobacterium avium complex: (5) Pulmonary nodules/lesions, multiple: (6) Anxiety: Plan 69 year old female with PMHx of COPD with home O2 2-3L/min, 34pack-year tobacco smoking history, MAC infection, anxiety, and insomnia presenting with worsening shortness of breath and desaturations to the low 80s requiring 6L/min NC likely provoked by Flu A, SOB improving and O2 currently improved to home rate of 2L/min. # COPD Exacerbation - Acute on chronic respiratory failure with hypoxia likely provoked by Influenza A - O2 requirement improving, currently on #L/min maintaining saturation at 97. She uses 2-3L/min at home. - Overnight pulse oximetry and ABG to qualify for trelogy/AVAPS - Albuterol changed to PRN. Patient is tachycardic. Albuterol likely contributing to tachycardia. - Prednisolone 40 mg PO QAM and will taper steroids gradually. -Fluticasone Furoate 1 puff daily; Anoro 1 puff daily -Mucinex, incentive spirometry, flutter valve -Emphasize continued smoking cessation -Followup outpatient to be evaluated for Average Volume Assured Pressure Support( AVAPS) utility -Can discharge tomorrow. Has been accepted by a rehab [facility] [place]. Will discharge after preauthorization by insurance. #Tachycardia -EKG ordered: shows NSR, No significant change compared to previous EKG -May be due to Albuterol. Albuterol changed to PRN #Influenza A: -Completed dose of Tamiflu -Has been removed from droplet precautions. -Continue home Azithromycin for pulmonary anti-inflammatory effect as a bonus from daily MAC regimen -Continue above regimen for COPD exacerbation #MAC Infection: - [facility] [place] ID records reviewed - Initial sputum culture positive September 2022 - Treatment started Nov 2022, patient has since continued on 3 drug regimen of Azithromycin, Ethambutol, and Rifampin, previously completed Amikaycin course. - Negative sputum cx Jul 2023 - no additional sputum samples obtained due to patient difficulty producing sample - per ID note, recommended pulm follow up for consideration of bronch + BAL. - Patient follows with [facility] pulmonology - can likely follow up as an outpatient -Continue Azithromycin qAM, Ethambutol qAM, Rifampin qHS Chronic Conditions: Anxiety- continue Celexa Insomnia- continue Trazodone Dispo: medical Diet: Regular VTE ppx: Lovenox Full Code Admission and Anticipated Discharge Date Admission Date: November 26, 2024 Supervising Physician Co-Signing Physician Notes ATTESTATION I also saw the patient and confirmed martin portions of the history and exam. I agree with the impression and plan in the resident documentation, and as summarized below. No new complaints today. She is eating lunch at the time of visit. She reports some dyspnea when walking in the hallway; better than she was upon admission, but shy of her home baseline. EXAM 129/74, 87, 20, 36.6, 94% on nasal cannula at 2 L/min Respirations nonlabored; talks in full and complete sentence without pause cardiovascular regular DATA Labs No new labs. IMPRESSION & PLAN influenza A acute exacerbation of chronic obstructive pulmonary disease acute on chronic respiratory failure with hypoxia history of Mycobacterium avium complex She has completed course of Tamiflu She is back to her home oxygen requirement Increasing exertional capacity but not yet back to her baseline Awaiting bed at shelter facility as transition to home Additional per resident documentation Subjective Pt is a 69 yo female who presents for AHRF and SOB in setting of flu A with a history of MAC. No acute events over night. No fresh complains. Her Shortness of breath is better today. Cough is better .. Appetite is improved Pt denies nausea,fever/chills, chest pain, diarrhea, abdominal pain, leg cramping. She reported pain in left lower ribs has subsided now. Review of Systems Review of Systems: As per HPI Physical Exam Physical Exam: General: A&Ox3, appearing frail and in mild distress, nontoxic in appearance CV: RRR, +s1/s2, no m/r/g Respiratory: decreased air movement b/l, soft scattered expiratory wheezes, otherwise clear to auscultation b/l, no retractions seen GI/Abdominal: +BS, abdomen soft, non-tender, non-distended MSK: Able to move all extremities upon command Neuro: no facial droop, speech intact, no sensory deficits Extremities: No lower extremity edema Skin: warm, dry, intact Results & Data Results & Data Vital Signs (Past 12 Hours) Vital Signs Temp Pulse Pulse Resp BP Pulse Ox O2 Del Method 12/05/24 07:47 87 20 94 Nasal Cannula 12/05/24 07:22 36.6 C 87 18 129/74 94 Nasal Cannula 12/04/24 22:10 37.0 C 86 17 144/77 H 96 Nasal Cannula O2 Flow Rate 12/05/24 07:47 2 12/05/24 07:22 2 12/04/24 22:10 2
--- NOTE | 2024-12-06 08:57 | Hospitalist Progress Note ---
Date of Service December 06, 2024 Assessment & Plan (1) Acute exacerbation of chronic obstructive pulmonary disease (COPD): (2) Influenza: (3) Acute and chronic respiratory failure with hypoxia: (4) Mycobacterium avium complex: (5) Pulmonary nodules/lesions, multiple: (6) Anxiety: Plan 69 year old female with PMHx of COPD with home O2 2-3L/min, 34pack-year tobacco smoking history, MAC infection, anxiety, and insomnia presenting with worsening shortness of breath and desaturations to the low 80s requiring 6L/min NC likely provoked by Flu A, SOB improving and O2 currently improved to home rate of 2L/min. # COPD Exacerbation - Acute on chronic respiratory failure with hypoxia likely provoked by Influenza A - O2 requirement improving, currently on #L/min maintaining saturation at 97. She uses 2-3L/min at home. - Overnight pulse oximetry and ABG to qualify for trelogy/AVAPS - Albuterol changed to PRN. . -Fluticasone Furoate 1 puff daily; Anoro 1 puff daily -Mucinex, incentive spirometry, flutter valve -Emphasize continued smoking cessation -Followup outpatient to be evaluated for Average Volume Assured Pressure Support( AVAPS) utility -Has been accepted by a rehab [facility] [place]. Insurance denied her authorization. Patient doesn't feel stable enough to go to home. #Tachycardia -EKG ordered: shows NSR, No significant change compared to previous EKG -May be due to Albuterol. Albuterol changed to PRN #Influenza A: -Completed dose of Tamiflu -Has been removed from droplet precautions. -Continue home Azithromycin for pulmonary anti-inflammatory effect as a bonus from daily MAC regimen -Continue above regimen for COPD exacerbation #MAC Infection: - [facility] [place] ID records reviewed - Initial sputum culture positive September 2022 - Treatment started Nov 2022, patient has since continued on 3 drug regimen of Azithromycin, Ethambutol, and Rifampin, previously completed Amikaycin course. - Negative sputum cx Jul 2023 - no additional sputum samples obtained due to patient difficulty producing sample - per ID note, recommended pulm follow up for consideration of bronch + BAL. - Patient follows with [facility] pulmonology - can likely follow up as an outpatient -Continue Azithromycin qAM, Ethambutol qAM, Rifampin qHS Chronic Conditions: Anxiety- continue Celexa Insomnia- continue Trazodone Dispo: medical Diet: Regular VTE ppx: Lovenox Full Code Admission and Anticipated Discharge Date Admission Date: November 26, 2024 Supervising Physician Co-Signing Physician Notes ATTESTATION I also saw the patient and confirmed martin portions of the history and exam. I agree with the impression and plan in the resident documentation, and as summarized below. No new complaints today. Unfortunately, insurance did not approve SNF. She does not feel ready to go home. She feels she lacks the strength in her legs; while she is improved, she does not feel that she is at her baseline where she could take care of herself independently in her apartment. EXAM Vital signs as noted Respirations nonlabored; talks in full and complete sentence without pause cardiovascular regular DATA Labs No new labs. IMPRESSION & PLAN influenza A acute exacerbation of chronic obstructive pulmonary disease acute on chronic respiratory failure with hypoxia history of Mycobacterium avium complex She has completed course of Tamiflu She is back to her home oxygen requirement Increasing exertional capacity but not yet back to her baseline discharge plans uncertain not at SNF not approved. Additional per resident documentation Subjective Pt is a 69 yo female who presents for AHRF and SOB in setting of flu A with a history of MAC. No acute events over night. No fresh complains. She reported some shortness of breath while walking down the hallway. Cough is better .. Appetite is improved Pt denies nausea,fever/chills, chest pain, diarrhea, abdominal pain, leg cramping. She reported pain in left lower ribs has subsided now. Patient mentioned she doesn't feel stable enough to go to home. Review of Systems Review of Systems: As per HPI Physical Exam Physical Exam: General: A&Ox3, appearing frail and in mild distress, nontoxic in appearance CV: RRR, +s1/s2, no m/r/g Respiratory: decreased air movement b/l, soft scattered expiratory wheezes, otherwise clear to auscultation b/l, no retractions seen GI/Abdominal: +BS, abdomen soft, non-tender, non-distended MSK: Able to move all extremities upon command Neuro: no facial droop, speech intact, no sensory deficits Extremities: No lower extremity edema Skin: warm, dry, intact Results & Data Results & Data Vital Signs (Past 12 Hours) Vital Signs Temp Pulse Pulse Resp BP Pulse Ox O2 Del Method 12/06/24 07:30 36.4 C L 107 H 16 134/74 98 Nasal Cannula 12/06/24 07:18 98 H 17 95 Nasal Cannula 12/06/24 01:26 Nasal Cannula 12/05/24 21:05 36.3 C L 97 H 16 115/62 94 Nasal Cannula O2 Flow Rate 12/06/24 07:30 2 12/06/24 07:18 2 12/06/24 01:26 2 12/05/24 21:05 2
--- NOTE | 2024-12-07 09:19 | Hospitalist Progress Note ---
Date of Service December 07, 2024 Assessment & Plan (1) Acute exacerbation of chronic obstructive pulmonary disease (COPD): (2) Influenza: (3) Acute and chronic respiratory failure with hypoxia: (4) Mycobacterium avium complex: (5) Pulmonary nodules/lesions, multiple: (6) Anxiety: Plan 69 year old female with PMHx of COPD with home O2 2-3L/min, 34pack-year tobacco smoking history, MAC infection, anxiety, and insomnia presenting with worsening shortness of breath and desaturations to the low 80s requiring 6L/min NC likely provoked by Flu A, SOB improving and O2 currently improved to home rate of 2L/min. # COPD Exacerbation - Acute on chronic respiratory failure with hypoxia likely provoked by Influenza A - O2 requirement improving, currently on #L/min maintaining saturation at 97. She uses 2-3L/min at home. - Overnight pulse oximetry and ABG to qualify for trelogy/AVAPS - Albuterol changed to PRN. . -Fluticasone Furoate 1 puff daily; Anoro 1 puff daily -Mucinex, incentive spirometry, flutter valve -Emphasize continued smoking cessation -Followup outpatient to be evaluated for Average Volume Assured Pressure Support( AVAPS) utility -As per Insurance declined authorization for SNF as she is close to her baseline. Will plan discharge back to home tomorrow. #Tachycardia -EKG ordered: shows NSR, No significant change compared to previous EKG -May be due to Albuterol. Albuterol changed to PRN #Influenza A: -Completed dose of Tamiflu -Has been removed from droplet precautions. -Continue home Azithromycin for pulmonary anti-inflammatory effect as a bonus from daily MAC regimen -Continue above regimen for COPD exacerbation #MAC Infection: - [facility] [place] ID records reviewed - Initial sputum culture positive September 2022 - Treatment started Nov 2022, patient has since continued on 3 drug regimen of Azithromycin, Ethambutol, and Rifampin, previously completed Amikaycin course. - Negative sputum cx Jul 2023 - no additional sputum samples obtained due to patient difficulty producing sample - per ID note, recommended pulm follow up for consideration of bronch + BAL. - Patient follows with [facility] pulmonology - can likely follow up as an outpatient -Continue Azithromycin qAM, Ethambutol qAM, Rifampin qHS Chronic Conditions: Anxiety- continue Celexa Insomnia- continue Trazodone Dispo: medical Diet: Regular VTE ppx: Lovenox Full Code Admission and Anticipated Discharge Date Admission Date: November 26, 2024 Supervising Physician Co-Signing Physician Notes I personally examined the patient and verified all martin points of history and exam, discussed case, and agree with decision making with Dr Davis SNF denied. she is getting around better. still doesn't quite feel up to going home but feels like she's making progress vitals noted nad heent nc at mmm breathing unlabored no accessory muscles good effort less fatigued than before IMPRESSION & PLAN influenza A acute exacerbation of chronic obstructive pulmonary disease acute on chronic respiratory failure with hypoxia history of Mycobacterium avium complex She has completed course of Tamiflu She is back to her home oxygen requirement Increasing exertional capacity but not yet back to her baseline hopefully home soon as she shows progress; encouraged increased activity. Additional per resident documentation Subjective Pt is a 69 yo female who presents for AHRF and SOB in setting of flu A with a history of MAC. No acute events over night. No fresh complains. She reported some shortness of breath while walking down the hallway. Cough is better .. Appetite is improved Pt denies nausea,fever/chills, chest pain, diarrhea, abdominal pain, leg cramping. She reported pain in left lower ribs has subsided now. Patient mentioned she doesn't feel stable enough to go to home. Review of Systems Review of Systems: As per HPI Physical Exam Physical Exam: General: A&Ox3, appearing frail and in mild distress, nontoxic in appearance CV: RRR, +s1/s2, no m/r/g Respiratory: decreased air movement b/l, soft scattered expiratory wheezes, otherwise clear to auscultation b/l, no retractions seen GI/Abdominal: +BS, abdomen soft, non-tender, non-distended MSK: Able to move all extremities upon command Neuro: no facial droop, speech intact, no sensory deficits Extremities: No lower extremity edema Skin: warm, dry, intact Results & Data Results & Data Vital Signs (Past 12 Hours) Vital Signs Temp Pulse Resp BP Pulse Ox O2 Del Method O2 Flow Rate 12/07/24 07:38 36.5 C 81 16 118/69 99 Nasal Cannula 2 12/07/24 07:17 100 H 17 98 Nasal Cannula 2
--- NOTE | 2024-12-07 18:52 | Billing Data ---
Date of Service December 07, 2024 Coding Level of Care Code 58531 SUB INP/OBS CARE
[2024-12-07] MEDS: DOCUSATE SODIUM 100 MG CAP PO ONE (23:13)
[2024-12-08 06:59] VITALS: BP 118/71; TEMP 98.2
[2024-12-08 07:38] VITALS: RESP 20; O2SAT 99
--- NOTE | 2024-12-08 07:40 | Hospitalist Progress Note ---
Date of Service December 08, 2024 Assessment & Plan (1) Acute exacerbation of chronic obstructive pulmonary disease (COPD): (2) Influenza: (3) Acute and chronic respiratory failure with hypoxia: (4) Mycobacterium avium complex: (5) Pulmonary nodules/lesions, multiple: (6) Anxiety: Plan 69 year old female with PMHx of COPD with home O2 2-3L/min, 34pack-year tobacco smoking history, MAC infection, anxiety, and insomnia presenting with worsening shortness of breath and desaturations to the low 80s requiring 6L/min NC likely provoked by Flu A, SOB improving and O2 currently improved to home rate of 2L/min. # COPD Exacerbation - Acute on chronic respiratory failure with hypoxia likely provoked by Influenza A - O2 requirement improving, currently on #L/min maintaining saturation at 97. She uses 2-3L/min at home. - Overnight pulse oximetry and ABG to qualify for trelogy/AVAPS - Albuterol changed to PRN. . -Fluticasone Furoate 1 puff daily; Anoro 1 puff daily -Mucinex, incentive spirometry, flutter valve -Emphasize continued smoking cessation -Followup outpatient to be evaluated for Average Volume Assured Pressure Support( AVAPS) utility -As per Insurance declined authorization for SNF as she is close to her baseline. Will plan discharge back to home tomorrow. #Tachycardia -EKG ordered: shows NSR, No significant change compared to previous EKG -May be due to Albuterol. Albuterol changed to PRN #Influenza A: -Completed dose of Tamiflu -Has been removed from droplet precautions. -Continue home Azithromycin for pulmonary anti-inflammatory effect as a bonus from daily MAC regimen -Continue above regimen for COPD exacerbation #MAC Infection: - [facility] ID records reviewed - Initial sputum culture positive September 2022 - Treatment started Nov 2022, patient has since continued on 3 drug regimen of Azithromycin, Ethambutol, and Rifampin, previously completed Amikaycin course. - Negative sputum cx Jul 2023 - no additional sputum samples obtained due to patient difficulty producing sample - per ID note, recommended pulm follow up for consideration of bronch + BAL. - Patient follows with [facility] pulmonology - can likely follow up as an outpatient -Continue Azithromycin qAM, Ethambutol qAM, Rifampin qHS Chronic Conditions: Anxiety- continue Celexa Insomnia- continue Trazodone Dispo: medical Diet: Regular VTE ppx: Lovenox Full Code Admission and Anticipated Discharge Date Admission Date: November 26, 2024 Subjective Pt is a 69 yo female who presents for AHRF and SOB in setting of flu A with a history of MAC. No acute events over night. No fresh complains. She reported some shortness of breath while walking down the hallway. Cough is better .. Appetite is improved Pt denies nausea,fever/chills, chest pain, diarrhea, abdominal pain, leg cramping. She reported pain in left lower ribs has subsided now. Patient mentioned she doesn't feel stable enough to go to home. Review of Systems Review of Systems: As per HPI Physical Exam Physical Exam: General: A&Ox3, appearing frail and in mild distress, nontoxic in appearance CV: RRR, +s1/s2, no m/r/g Respiratory: decreased air movement b/l, soft scattered expiratory wheezes, otherwise clear to auscultation b/l, no retractions seen GI/Abdominal: +BS, abdomen soft, non-tender, non-distended MSK: Able to move all extremities upon command Neuro: no facial droop, speech intact, no sensory deficits Extremities: No lower extremity edema Skin: warm, dry, intact Results & Data Results & Data Vital Signs (Past 12 Hours) Vital Signs Temp Pulse Resp BP Pulse Ox O2 Del Method O2 Flow Rate 12/08/24 07:38 89 20 99 Nasal Cannula 2 12/08/24 06:58 36.8 C 79 16 118/71 97 Nasal Cannula 2.0 12/08/24 00:31 89 14 100/65 94 Nasal Cannula 2 12/07/24 22:01 36.5 C 100 H 20 135/76 93 Nasal Cannula 2 12/07/24 20:50 Nasal Cannula 2 12/07/24 20:21 104 H 18 94 Nasal Cannula 2
--- NOTE | 2024-12-08 10:41 | Discharge Summary ---
Date of Service December 08, 2024 Admission HPI Per Admitting Provider 69 year old female with PMHx of COPD, tobacco use, MAC infection, anxiety, insomnia presenting with worsening shortness of breath. Sx started Saturday with rhinorrhea, fatigue, myalgias - later developed subjective fevers/chills, shortness of breath. On 2-3L O2 at baseline, was requiring 5-6L over past couple day. Patient seen earlier today at an outside facility, tested positive for influenza - recommended for admission but patient wanted to be treated at [facility] as her pulmonology team is here. Patient follows [facility] [place] management of MAC infection, diagnosed September 2022. At present, patient notes partial improvement in SOB with neb tx. Denies current fever/chills. ED Course: S/P IV Solumedrol 60mg S/P Duonebs x2 Admission Exam Per Admitting Provider GENERAL: alert, unwell appearing, well nourished, moderate distress, non-toxic EYE EXAM: normal conjunctiva, PERRL and EOM's grossly intact OROPHARYNX: no exudate, no erythema, lips, buccal mucosa, and tongue normal and mucous membranes are moist NECK: supple, no nuchal rigidity, no adenopathy, non-tender LUNGS: Decreased bilaterally to auscultation. Normal chest wall mechanics, scattered expiratory wheeze bilaterally, no rhonchi or rails, tachypnea and increased work of breathing noted HEART: no murmurs, S1 normal and S2 normal ABDOMEN: abdomen soft, non-tender, normo-active bowel sounds, no masses, no rebound or guarding. BACK: Back is symmetrical on inspection and there is no deformity, no midline tenderness, no CVA tenderness. SKIN: no rashes, petechiae, orbruising UPPER EXTREMITIES: upper extremities are grossly normal. FROM, nml pulses b/l. Mild clubbing and yellowish discoloration consistent with smoking history LOWER EXTREMITIES: No pitting edema. FROM, nml pulses b/l. NEURO EXAM: Normal sensorium, cranial nerves II-XII grossly intact, normal speech, no facial droop,nogross weakness of arms, no gross weakness of legs. Gross sensation intact. No ataxia. Principal Diagnosis 1. Acute Exacerbation of COPD due to Influenza A 2. Mycobacterium Avium Complex Infection Discharge Exam General: A&Ox3, appearing frail and in mild distress, nontoxic in appearance CV: RRR, +s1/s2, no m/r/g Respiratory: decreased air movement b/l, soft scattered expiratory wheezes, otherwise clear to auscultation b/l, no retractions seen GI/Abdominal: +BS, abdomen soft, non-tender, non-distended MSK: Able to move all extremities upon command Neuro: no facial droop, speech intact, no sensory deficits Extremities: No lower extremity edema Skin: warm, dry, intact Discharge Data Allergies Allergy/AdvReac Type Severity Reaction Status Date / Time No Known Allergies Allergy Unverified 11/25/24 22:51 Consultations 11/25/24 23:49 ED Decision to Admit Stat Hospital Course (1) Acute and chronic respiratory failure with hypoxia: (2) Dyspnea: (3) Chronic obstructive pulmonary disease: (4) Chronic respiratory failure with hypoxia: Plan # COPD Exacerbation -Fluticasone Furoate 1 puff daily; Anoro 1 puff daily -Mucinex, incentive spirometry, flutter valve -Emphasize continued smoking cessation -Followup outpatient to be evaluated for Average Volume Assured Pressure Support( AVAPS) utility -Discharge today with home health service #Influenza A: - Resolved #MAC Infection: - [facility] - Initial sputum culture positive September 2022 - Treatment started Nov 2022, patient has since continued on 3 drug regimen of Azithromycin, Ethambutol, and Rifampin, previously completed Amikacin course. - Negative sputum cx Jul 2023 - no additional sputum samples obtained due to patient difficulty producing sample - per ID note, recommended pulm follow up for consideration of bronch + BAL. - Patient follows with [facility] pulmonology - can likely follow up as an outpatient -Continue Azithromycin qAM, Ethambutol qAM, Rifampin qHS Chronic Conditions: Anxiety- continue Celexa Insomnia- continue Trazodone Total Time Total Time Spent Total Time Spent (In Minutes): <30 Discharge Plan Discharge Items Patient Disposition: Home - Home Health Services Reason For Visit: SOB Discharge Diagnosis: 1. Acute Exacerbation of COPD due to Influenza A 2. Mycobacterium Avium Complex Infection Activity: Per Instructions section Non-emergency contact: Primary Care Provider Call non-emergency contact if: you have any medication questions and your symptoms worsen Follow-up/Referrals: Chris Richey DO [Primary Care Provider] - 12/22/24 11:00 am Diet: Regular Addtl Attending Provider Instructions: You presented to ER with increased Shortness of breath and a worsening non productive cough .You had acute Exacerbation of COPD due to Influenza A. You are still short of breath with ambulation near to your baseline.We feel you are stable to go back home with home health set up. A discharge summary will be sent to your primary care physician to ensure continuity of care. Please bring this discharge summary with you to your next office appointment so that your provider can review it at that time. Follow-up appointments: Make a follow-up appointment with your PCP within the next week. It is very important that you follow up with them shortly after discharge from the hospital. Keep all your follow-up appointments as already scheduled. If you cannot make an appointment, notify your provider. Medications: Your medication list has been reviewed and reconciled upon discharge to ensure accuracy and continuity of care. An updated list of all your medications is included with your hospital discharge paperwork. Continue taking your home medications as you were taking before. CONTACT YOUR PRIMARY CARE PROVIDER if you experience any of the following: Increased shortness of breath Chest pain or fever Difficulty following your treatment plan, or difficulty taking medications CALL 911 OR GO TO THE EMERGENCY DEPARTMENT if you experience any of the following: Sudden, severe abdominal pain or nausea/vomiting Severe chest pain, or chest pain that radiates (moves) to your jaw or arm Sudden, severe shortness of breath or difficulty breathing Thank you for allowing us to participate in your care. . Pending Studies at Discharge: No Stand-Alone Forms: [facility], Sm[facility] Cessation Medications and DC Order Prescriptions: Continued citalopram 40 mg tablet 40 mg PO QAM (DME) Flutter Valve Device See Rx Instructions .ROUTE .MEDSUPPLY Qty: 1 0RF Rx Instructions: Use after nebulizer treatment and as needed during the day (DME) Oxygen Home Liters Per Minute See Rx Instructions .Route Qty: 1 0RF Rx Instructions: oxygen concentrator with portablility, 3LPM via n/c with exertion. ELMO 99 (DME) Spacer for Inhaler Misc See Rx Instructions .Route Qty: 1 0RF Rx Instructions: As directed rifampin 300 mg capsule 600 mg PO QPM Rx Instructions: TAKE WITH FOOD ethambutol 400 mg tablet 800 mg PO QAM buspirone 10 mg tablet 10 mg PO TID PRN (Reason: Anxiety) trazodone 100 mg tablet 100 mg PO HS omeprazole 20 mg capsule,delayed release(DR/EC) 20 mg PO QDL Ohtuvayre 3 mg/2.5 mL suspension for nebulization 3 mg inhalation BID Qty: 150 11RF (DME) [place]bulizers [facility] See Rx Instructions .Route Qty: 1 1RF Rx Instructions: Nebulizer and nebulizer kits-ELMO 99- PHM ipratropium-albuterol 0.5 mg-3 mg(2.5 mg base)/3 mL solution for nebulization 3 ml INHALATION Q4 PRN (Reason: Shortness Of Breath) azithromycin 250 mg tablet 250 mg PO QAM Rx Instructions: TAKE WITH FOOD albuterol sulfate 90 mcg/actuation HFA aerosol inhaler 2 inh inhalation QID PRN (Reason: shortness of breath or wheezing) Rx Instructions: needs refill Trelegy Ellipta 200-62.5-25 mcg blister with device 1 inh inhalation QAM Rx Instructions: will need refill Discontinued acetaminophen 500 mg Tablet 1,000 mg PO BID Discharge Orders: Discharge Order (Routine); Ordered 12/08/24 Ordered By: Grady Davis Admission Data Admit Date/Time: 11/26/24 01:21 Attending Provider: Nasir Harris Admit Provider: Deangelo Velasoc Primary Care Provider: Chris Richey Other Providers: Ishaan Saucedo; Tanisha Ziegler at [place]; [facility]; [facility]; [facility] Other Interventions: Discharge Summary Assessment (RN) Last Done: 12/08/24 11:06 Supervising Physician Co-Signing Physician Notes I personally examined the patient and verified all martin points of history and exam, discussed case, and agree with decision making with Dr Davis feeling better feeling like she's making progress feels up to going home today. working with PT when i saw her vitals noted nad heent nc at mmm breathing unlabored no accessory muscles good effort less fatigued than before IMPRESSION & PLAN influenza A acute exacerbation of chronic obstructive pulmonary disease acute on chronic respiratory failure with hypoxia history of Mycobacterium avium complex She has completed course of Tamiflu She is back to her home oxygen requirement improving enough that she appears safe/stable for home and feels safe about going home Additional per resident documentation Resident Activity Tracking Resident Involvement: Resident Care Provided Care Provided: Adult Hospital Medicine
[2024-12-08 11:07] VITALS: PULSE 102
--- NOTE | 2024-12-08 13:18 | Billing Data ---
Date of Service December 08, 2024 Coding Level of Care Code 33553 IN/OBS DISCH 30 MIN/LESS
== END 2024-12-08 11:42 | disposition home health service (06) | DRG 152 ==
LOC: ED 19:34 → 3E 11-26 01:21 → SUATTDRO 11-26 01:21 → 3E 11-26 02:20